=== PATIENT | female | born 1990 | race Caucasian/White ===

== ENCOUNTER 2017-10-07 21:37 | Emergency (ER) | payer BC, OTHER ==
[2017-10-08 00:28] LABS: Appearance,Urine Clear (Clear); Bilirubin,Urine Negative (Negative); Blood,Urine Negative (Negative); Color,Urine Yellow; Glucose,Urine (UA) Negative (Negative); Hyaline Casts,Urine 2 /lpf (0-2); Ketones,Urine Negative (Negative); Leukocyte Esterase,Urine Moderate (Negative); Mucus,Urine Few /hpf; Nitrite,Urine Negative (Negative); Protein,Urine Negative (Negative); RBC,Urine 2 /hpf (0-5); Specific Gravity,Urine 1.013 (1.001-1.035); Squamous Epithelial Cell,Urine 7 /hpf (0-4); Urobilinogen,Urine <2.0 mg/dL (<2.0); WBC,Urine 4 /hpf (0-5)
--- NOTE | 2017-10-08 00:30 | ED ---
Abdominal Pain HPI - General Chief Complaint: Abdominal Pain Stated Complaint: Abd Pain/Brown Urine Time Seen by Provider: 10/08/17 00:05 Source: patient Mode of arrival: ambulatory Limitations: no limitations - History of Present Illness Initial Comments: This patient is a 27-year-old woman who presents to be evaluated for abdominal pains and dark urine. The patient states that she noted that her urine was dark last night, 24 hours ago. She states she is not certain if it is any better today, she did not notice. Tonight she was at work and she was having some abdominal pains that seem to be migrating around her abdomen. She indicates that the pain was at times in the bilateral lower quadrants, at times in the left upper quadrant, and it seemed to be moving around. The patient was concerned that her son may have given her hepatitis A as he had some vomiting and diarrhea last week. Her son has not had a known exposure or a known diagnosis. She had taken him to the clinic and he was given prescription for antiemetic. The patient then had spent the weekend with his father and she did not know how he was doing, but reports that the patient's father did not give him the medication. Patient denies nausea or vomiting, change in bowel movements, or other urinary symptoms, including no frequency, urgency, or dysuria. MD Complaint: abdominal pain -: hour(s) Radiation: none Migration to: other (Diffuse) Severity: moderate Quality: cramping Consistency: colicky Improves With: nothing Worsens With: nothing Associated Symptoms: other (Dark urine) - Related Data Home Medications Medication Instructions Recorded Confirmed Pnv,Calcium 72/Iron/Folic Acid 1 each PO DAILY 10/17/15 02/28/16 [ Plus Tablet] Previous Rx's Medication Instructions Recorded Ibuprofen [Motrin] 600 mg PO Q6HR PRN #30 tab 03/01/16 Allergies Allergy/AdvReac Type Severity Reaction Status Date / Time No Known Allergies Allergy Verified 10/07/17 22:15 Review of Systems ROS Statement: Those systems with pertinent positive or pertinent negative responses have been documented in the HPI. ROS Other: All systems not noted in ROS Statement are negative. Constitutional: Denies: fever, chills Respiratory: Denies: cough, dyspnea Cardiovascular: Denies: chest pain, palpitations Gastrointestinal: Reports: abdominal pain. Denies: nausea, vomiting, diarrhea, constipation, melena, hematochezia Genitourinary: Reports: other (Dark urine). Denies: dysuria, frequency, abnormal menses Musculoskeletal: Denies: back pain Skin: Denies: rash Neurological: Denies: headache Past Medical History Past Medical History: No Reported History Additional Past Medical History / Comment(s): cyst on labia, kidney stones, History of Any Multi-Drug Resistant Organisms: None Reported Past Surgical History: Section Additional Past Surgical History / Comment(s): cyst removal from labia Past Anesthesia/Blood Transfusion Reactions: No Reported Reaction Past Psychological History: No Psychological Hx Reported Smoking Status: Former smoker Past Alcohol Use History: None Reported Past Drug Use History: None Reported - Past Family History Father History Unknown: Yes Family Medical History: Hypertension Additional Family Medical History / Comment(s): paternal grandmother General Exam Limitations: no limitations General appearance: alert, in no apparent distress Head exam: Present: atraumatic, normocephalic Eye exam: Present: normal appearance. Absent: scleral icterus, conjunctival injection ENT exam: Present: normal oropharynx Respiratory exam: Present: normal lung sounds bilaterally. Absent: respiratory distress, wheezes, rales, rhonchi, stridor Cardiovascular Exam: Present: regular rate, normal rhythm, normal heart sounds. Absent: systolic murmur, diastolic murmur, rubs, gallop GI/Abdominal exam: Present: soft, normal bowel sounds. Absent: distended, tenderness, guarding, rebound, rigid, mass, pulsatile mass, hernia Extremities exam: Present: normal inspection, normal capillary refill. Absent: pedal edema, calf tenderness Back exam: Present: normal inspection. Absent: CVA tenderness (R), CVA tenderness (L) Neurological exam: Present: alert Skin exam: Present: warm, dry, intact, normal color. Absent: rash Course Vital Signs 10/07/17 22:11 Temperature 99.1 F Pulse Rate 79 Respiratory 17 Rate Blood Pressure 122/58 O2 Sat by Pulse 98 Oximetry Medical Decision Making - Lab Data Result diagrams: 10/08/17 00:31 10/08/17 00:31 Lab Results 10/08/17 10/08/17 10/08/17 Range/Units 00:00 00:00 00:31 WBC (3.8-10.6) k/uL RBC (3.80-5.40) m/uL Hgb (11.4-16.0) gm/dL Hct (34.0-46.0) % MCV (80.0-100.0) fL MCH (25.0-35.0) pg MCHC (31.0-37.0) g/dL RDW (11.5-15.5) % Plt Count (150-450) k/uL Neutrophils % % Lymphocytes % % Monocytes % % Eosinophils % % Basophils % % Neutrophils # (1.3-7.7) k/uL Lymphocytes # (1.0-4.8) k/uL Monocytes # (0-1.0) k/uL Eosinophils # (0-0.7) k/uL Basophils # (0-0.2) k/uL Sodium 141 (137-145) mmol/L Potassium 4.1 (3.5-5.1) mmol/L Chloride 106 (98-107) mmol/L Carbon Dioxide 23 (22-30) mmol/L Anion Gap 12 mmol/L BUN 11 (7-17) mg/dL Creatinine 0.70 (0.52-1.04) mg/dL Est GFR (MDRD) Af Amer >60 (>60 ml/min/1.73 sqM) Est GFR (MDRD) Non-Af >60 (>60 ml/min/1.73 sqM) Glucose 92 (74-99) mg/dL Calcium 10.1 (8.4-10.2) mg/dL Total Bilirubin 0.4 (0.2-1.3) mg/dL AST 23 (14-36) U/L ALT 34 (9-52) U/L Alkaline Phosphatase 45 (38-126) U/L Total Protein 7.9 (6.3-8.2) g/dL Albumin 5.0 (3.5-5.0) g/dL Amylase 46 (30-110) U/L Lipase 71 (23-300) U/L Urine Color Yellow Urine Appearance Clear (Clear) Urine pH 6.0 (5.0-8.0) Ur Specific [place] 1.013 (1.001-1.035) Urine Protein Negative (Negative) Urine Glucose (UA) Negative (Negative) Urine Ketones Negative (Negative) Urine Blood Negative (Negative) Urine Nitrite Negative (Negative) Urine Bilirubin Negative (Negative) Urine Urobilinogen <2.0 (<2.0) mg/dL Ur Leukocyte Esterase Moderate H (Negative) Urine RBC 2 (0-5) /hpf Urine WBC 4 (0-5) /hpf Ur Squamous Epith Cells 7 H (0-4) /hpf Hyaline Casts 2 (0-2) /lpf Urine Mucus Few H (None) /hpf Urine HCG, Qual Not Detected (Not Detectd) 10/08/17 Range/Units 00:31 WBC 7.8 (3.8-10.6) k/uL RBC 4.48 (3.80-5.40) m/uL Hgb 12.8 (11.4-16.0) gm/dL Hct 39.5 (34.0-46.0) % MCV 88.1 (80.0-100.0) fL MCH 28.5 (25.0-35.0) pg MCHC 32.4 (31.0-37.0) g/dL RDW 13.4 (11.5-15.5) % Plt Count 226 (150-450) k/uL Neutrophils % 51 % Lymphocytes % 39 % Monocytes % 6 % Eosinophils % 1 % Basophils % 1 % Neutrophils # 4.0 (1.3-7.7) k/uL Lymphocytes # 3.0 (1.0-4.8) k/uL Monocytes # 0.5 (0-1.0) k/uL Eosinophils # 0.1 (0-0.7) k/uL Basophils # 0.0 (0-0.2) k/uL Sodium (137-145) mmol/L Potassium (3.5-5.1) mmol/L Chloride (98-107) mmol/L Carbon Dioxide (22-30) mmol/L Anion Gap mmol/L BUN (7-17) mg/dL Creatinine (0.52-1.04) mg/dL Est GFR (MDRD) Af Amer (>60 ml/min/1.73 sqM) Est GFR (MDRD) Non-Af (>60 ml/min/1.73 sqM) Glucose (74-99) mg/dL Calcium (8.4-10.2) mg/dL Total Bilirubin (0.2-1.3) mg/dL AST (14-36) U/L ALT (9-52) U/L Alkaline Phosphatase (38-126) U/L Total Protein (6.3-8.2) g/dL Albumin (3.5-5.0) g/dL Amylase (30-110) U/L Lipase (23-300) U/L Urine Color Urine Appearance (Clear) Urine pH (5.0-8.0) Ur Specific [place] (1.001-1.035) Urine Protein (Negative) Urine Glucose (UA) (Negative) Urine Ketones (Negative) Urine Blood (Negative) Urine Nitrite (Negative) Urine Bilirubin (Negative) Urine Urobilinogen (<2.0) mg/dL Ur Leukocyte Esterase (Negative) Urine RBC (0-5) /hpf Urine WBC (0-5) /hpf Ur Squamous Epith Cells (0-4) /hpf Hyaline Casts (0-2) /lpf Urine Mucus (None) /hpf Urine HCG, Qual (Not Detectd) Disposition Clinical Impression: Abdominal pain Disposition: HOME SELF-CARE Condition: Good Instructions: Abdominal Pain (ED) Referrals: Vickie Rodriguez MD [STAFF PHYSICIAN] - 1-2 days
[2017-10-08 00:47] LABS: Basophils % (A) 1 %; Eosinophils # (A) 0.1 k/uL (0-0.7); Eosinophils % (A) 1 %; HCT 39.5 % (34.0-46.0); HGB 12.8 gm/dL (11.4-16.0); Lymphocytes % (A) 39 %; MCH 28.5 pg (25.0-35.0); MCHC 32.4 g/dL (31.0-37.0); MCV 88.1 fL (80.0-100.0); Monocytes # (A) 0.5 k/uL (0-1.0); Monocytes % (A) 6 %; Neutrophils % (A) 51 %; Platelet Count 226 k/uL (150-450); RBC 4.48 m/uL (3.80-5.40); RDW 13.4 % (11.5-15.5); WBC 7.8 k/uL (3.8-10.6)
[2017-10-08 01:02] LABS: ALT 34 U/L (9-52); AST 23 U/L (14-36); Alkaline Phosphatase 45 U/L (38-126); Amylase 46 U/L (30-110); Anion Gap 12 mmol/L; Blood Urea Nitrogen 11 mg/dL (7-17); Calcium 10.1 mg/dL (8.4-10.2); Carbon Dioxide 23 mmol/L (22-30); Chloride 106 mmol/L (98-107); Glucose 92 mg/dL (74-99); Lipase 71 U/L (23-300); Sodium 141 mmol/L (137-145); Total Bilirubin 0.4 mg/dL (0.2-1.3); Total Protein 7.9 g/dL (6.3-8.2)
[2017-10-08 01:07] LABS: Potassium 4.1 mmol/L (3.5-5.1)
[2017-10-08 02:57] VITALS: BP 115/58; PULSE 67; RESP 18; TEMP 98.7
== END 2017-10-08 03:04 | disposition home or self-care (01) ==
LOC: EC 21:37
DX: R10.9 Unspecified abdominal pain (principal); R82.90 Unspecified abnormal findings in urine; Z87.891 Personal history of nicotine dependence; Z79.899 Other long term (current) drug therapy
CPT/HCPCS: 36415; 80053; 81001; 81025; 82150; 83690; 85025; 99284

== ENCOUNTER 2017-12-24 18:53 | Emergency (ER) | payer BC, OTHER ==
[2017-12-24 18:57] VITALS: TEMP 97.1
[2017-12-24 20:31] LABS: Appearance,Urine Cloudy (Clear); Bacteria,Urine Occasional /hpf; Bilirubin,Urine Negative (Negative); Blood,Urine Negative (Negative); Color,Urine Yellow; Glucose,Urine (UA) Negative (Negative); Ketones,Urine Trace (Negative); Leukocyte Esterase,Urine Large (Negative); Mucus,Urine Many /hpf; Nitrite,Urine Negative (Negative); Protein,Urine 1+ (Negative); RBC,Urine 5 /hpf (0-5); Specific Gravity,Urine 1.028 (1.001-1.035); Squamous Epithelial Cell,Urine 15 /hpf (0-4); WBC,Urine 17 /hpf (0-5)
[2017-12-24] MEDS ORDERED: ONDANSETRON 4 MG/2 ML VIAL IVP STA (20:52)
[2017-12-24] MEDS ORDERED: SODIUM CHLORIDE 0.9% 1,000 ML IV ONE (20:52)
[2017-12-24] MEDS ORDERED: DICYCLOMINE 10 MG/ML 2 ML AMP IM STA (20:52)
--- NOTE | 2017-12-24 20:56 | ED ---
Nausea/Vomiting/Diarrhea HPI - General Chief complaint: Nausea/Vomiting/Diarrhea Stated complaint: nausea Time Seen by Provider: 12/24/17 20:36 Source: patient Mode of arrival: ambulatory Limitations: no limitations - History of Present Illness Initial comments: 27-year-old female patient presented to the emergency department today for evaluation of nausea, vomiting, diarrhea, and abdominal cramping. Patient states that symptoms started last evening with diarrhea. States she his having lower abdominal cramping currently. States that she has vomited twice today. She states that she has felt feverish and chilled. States that she could not make it through her work day today. She denies any hematemesis, hematochezia, or melena. She denies any dysuria, hematuria, urinary urgency, urinary frequency. States that she does get the [place] shot, is not sexually active, and therefore denies any chance of . She denies any abnormal vaginal bleeding or discharge. Patient denies any recent rash, shortness breath, chest pain, back pain, numbness, tingling, dizziness, weakness, headache, visual changes, or any other complaints. - Related Data Home Medications Medication Instructions Recorded Confirmed Pnv,Calcium 72/Iron/Folic Acid 1 tab PO DAILY 10/17/15 12/24/17 [ Plus Tablet] Nyquil Cold And Flu 30 ml PO Q6H PRN 12/24/17 12/24/17 Previous Rx's Medication Instructions Recorded Ondansetron [Zofran ODT] 4 mg PO Q8HR PRN #10 tab 12/24/17 Allergies Allergy/AdvReac Type Severity Reaction Status Date / Time No Known Allergies Allergy Verified 12/24/17 20:30 Review of Systems ROS Statement: Those systems with pertinent positive or pertinent negative responses have been documented in the HPI. ROS Other: All systems not noted in ROS Statement are negative. Past Medical History Past Medical History: No Reported History Additional Past Medical History / Comment(s): cyst on labia, kidney stones, chronic neck pain History of Any Multi-Drug Resistant Organisms: None Reported Past Surgical History: Section Additional Past Surgical History / Comment(s): cyst removal from labia Past Anesthesia/Blood Transfusion Reactions: No Reported Reaction Past Psychological History: No Psychological Hx Reported Smoking Status: Former smoker Past Alcohol Use History: None Reported Past Drug Use History: None Reported - Past Family History Father History Unknown: Yes Family Medical History: Hypertension Additional Family Medical History / Comment(s): paternal grandmother General Exam Limitations: no limitations General appearance: alert, in no apparent distress, other (This is a well- developed, well-nourished, nontoxic-appearing 27-year-old female patient with no acute distress. Vital signs upon presentation are temperature 97.1F, pulse 112, respirations 20, blood pressure 107/65, pulse ox 99% on room air.) Eye exam: Present: normal appearance, PERRL, EOMI. Absent: scleral icterus, conjunctival injection, periorbital swelling ENT exam: Present: normal exam, normal oropharynx, mucous membranes moist Respiratory exam: Present: normal lung sounds bilaterally. Absent: respiratory distress, wheezes, rales, rhonchi, stridor Cardiovascular Exam: Present: regular rate, normal rhythm, normal heart sounds. Absent: systolic murmur, diastolic murmur, rubs, gallop, clicks GI/Abdominal exam: Present: soft, tenderness (Lower abdominal tenderness), normal bowel sounds. Absent: distended, guarding, rebound, rigid Neurological exam: Present: alert, oriented X3, CN II-XII intact Psychiatric exam: Present: normal affect, normal mood Skin exam: Present: warm, dry, intact, normal color. Absent: rash Course Vital Signs 12/24/17 12/24/17 18:55 22:52 Temperature 97.1 F L Pulse Rate 112 H 77 Respiratory 20 16 Rate Blood Pressure 107/65 114/59 O2 Sat by Pulse 99 99 Oximetry Medical Decision Making - Medical Decision Making 27-year-old female patient presented to the emergency department today for evaluation of diarrhea, vomiting, and lower abdominal cramping. Physical examination was unremarkable. Abdomen is soft and nontender. Labs reviewed and were unremarkable. KUB x-ray of the abdomen did show new calcifications over the left kidney. Patient is not complaining of any flank pain or hematuria. I did discuss findings with the patient. She states she is feeling better after receiving medications and IV fluids here in the department. We will discharge her at this time with probable diagnosis of gastroenteritis given her symptoms. Patient is instructed to follow-up with the primary care physician for recheck. She is instructed to return here immediately for any new , worsening, or concerning symptoms. She verbalizes understanding and agrees with this plan. - Lab Data Result diagrams: 12/24/17 21:28 12/24/17 21:28 Lab Results 12/24/17 12/24/17 12/24/17 Range/Units 20:08 20:08 21:28 WBC 9.4 (3.8-10.6) k/uL RBC 4.86 (3.80-5.40) m/uL Hgb 13.8 (11.4-16.0) gm/dL Hct 42.4 (34.0-46.0) % MCV 87.2 (80.0-100.0) fL MCH 28.4 (25.0-35.0) pg MCHC 32.6 (31.0-37.0) g/dL RDW 12.8 (11.5-15.5) % Plt Count 170 (150-450) k/uL Neutrophils % 89 % Lymphocytes % 6 % Monocytes % 4 % Eosinophils % 1 % Basophils % 0 % Neutrophils # 8.4 H (1.3-7.7) k/uL Lymphocytes # 0.5 L (1.0-4.8) k/uL Monocytes # 0.4 (0-1.0) k/uL Eosinophils # 0.1 (0-0.7) k/uL Basophils # 0.0 (0-0.2) k/uL Sodium (137-145) mmol/L Potassium (3.5-5.1) mmol/L Chloride (98-107) mmol/L Carbon Dioxide (22-30) mmol/L Anion Gap mmol/L BUN (7-17) mg/dL Creatinine (0.52-1.04) mg/dL Est GFR (CKD-EPI)AfAm (>60 ml/min/1.73 sqM) Est GFR (CKD-EPI)NonAf (>60 ml/min/1.73 sqM) Glucose (74-99) mg/dL Calcium (8.4-10.2) mg/dL Total Bilirubin (0.2-1.3) mg/dL AST (14-36) U/L ALT (9-52) U/L Alkaline Phosphatase (38-126) U/L Total Protein (6.3-8.2) g/dL Albumin (3.5-5.0) g/dL Lipase (23-300) U/L Urine Color Yellow Urine Appearance Cloudy H (Clear) Urine pH 6.0 (5.0-8.0) Ur Specific [place] 1.028 (1.001-1.035) Urine Protein 1+ H (Negative) Urine Glucose (UA) Negative (Negative) Urine Ketones Trace H (Negative) Urine Blood Negative (Negative) Urine Nitrite Negative (Negative) Urine Bilirubin Negative (Negative) Urine Urobilinogen 2.0 (<2.0) mg/dL Ur Leukocyte Esterase Large H (Negative) Urine RBC 5 (0-5) /hpf Urine WBC 17 H (0-5) /hpf Ur Squamous Epith Cells 15 H (0-4) /hpf Urine Bacteria Occasional H (None) /hpf Urine Mucus Many H (None) /hpf Urine HCG, Qual Not Detected (Not Detectd) 12/24/17 Range/Units 21:28 WBC (3.8-10.6) k/uL RBC (3.80-5.40) m/uL Hgb (11.4-16.0) gm/dL Hct (34.0-46.0) % MCV (80.0-100.0) fL MCH (25.0-35.0) pg MCHC (31.0-37.0) g/dL RDW (11.5-15.5) % Plt Count (150-450) k/uL Neutrophils % % Lymphocytes % % Monocytes % % Eosinophils % % Basophils % % Neutrophils # (1.3-7.7) k/uL Lymphocytes # (1.0-4.8) k/uL Monocytes # (0-1.0) k/uL Eosinophils # (0-0.7) k/uL Basophils # (0-0.2) k/uL Sodium 142 (137-145) mmol/L Potassium 4.1 (3.5-5.1) mmol/L Chloride 104 (98-107) mmol/L Carbon Dioxide 22 (22-30) mmol/L Anion Gap 16 mmol/L BUN 16 (7-17) mg/dL Creatinine 0.62 (0.52-1.04) mg/dL Est GFR (CKD-EPI)AfAm >90 (>60 ml/min/1.73 sqM) Est GFR (CKD-EPI)NonAf >90 (>60 ml/min/1.73 sqM) Glucose 80 (74-99) mg/dL Calcium 9.6 (8.4-10.2) mg/dL Total Bilirubin 0.6 (0.2-1.3) mg/dL AST 22 (14-36) U/L ALT 22 (9-52) U/L Alkaline Phosphatase 49 (38-126) U/L Total Protein 7.2 (6.3-8.2) g/dL Albumin 4.5 (3.5-5.0) g/dL Lipase 59 (23-300) U/L Urine Color Urine Appearance (Clear) Urine pH (5.0-8.0) Ur Specific [place] (1.001-1.035) Urine Protein (Negative) Urine Glucose (UA) (Negative) Urine Ketones (Negative) Urine Blood (Negative) Urine Nitrite (Negative) Urine Bilirubin (Negative) Urine Urobilinogen (<2.0) mg/dL Ur Leukocyte Esterase (Negative) Urine RBC (0-5) /hpf Urine WBC (0-5) /hpf Ur Squamous Epith Cells (0-4) /hpf Urine Bacteria (None) /hpf Urine Mucus (None) /hpf Urine HCG, Qual (Not Detectd) - Radiology Data Radiology results: report reviewed, image reviewed Two-view x-ray of the chest shows no sign of intestinal obstruction or pneumoperitoneum. Fecal pattern is normal. There are small calcifications over the interpolar left kidney. Lung bases are clear. Impression by Dr. Henao shows nonacute abdomen. There are no probable left renal calcifications compared to old exam. Disposition Clinical Impression: Gastroenteritis Disposition: HOME SELF-CARE Condition: Good Instructions: Gastroenteritis (ED) Additional Instructions: Start with a clear liquid diet and advance as tolerated. Follow up with your primary care physician for a recheck in 1-2 days. Return here immediately for any new, worsening, or concerning symptoms. Prescriptions: Ondansetron [Zofran ODT] 4 mg PO Q8HR PRN #10 tab PRN Reason: Nausea Referrals: Faisal Peters MD [Primary Care Provider] - 1-2 days Time of Disposition: 22:49
[2017-12-24 21:42] LABS: Basophils % (A) 0 %; Eosinophils # (A) 0.1 k/uL (0-0.7); Eosinophils % (A) 1 %; HCT 42.4 % (34.0-46.0); HGB 13.8 gm/dL (11.4-16.0); Lymphocytes # (A) 0.5 k/uL (1.0-4.8); Lymphocytes % (A) 6 %; MCH 28.4 pg (25.0-35.0); MCHC 32.6 g/dL (31.0-37.0); MCV 87.2 fL (80.0-100.0); Mean Platelet Volume 7.9; Monocytes # (A) 0.4 k/uL (0-1.0); Monocytes % (A) 4 %; Neutrophils # (A) 8.4 k/uL (1.3-7.7); Neutrophils % (A) 89 %; Platelet Count 170 k/uL (150-450); RBC 4.86 m/uL (3.80-5.40); RDW 12.8 % (11.5-15.5); WBC 9.4 k/uL (3.8-10.6)
[2017-12-24 21:51] LABS: ALT 22 U/L (9-52); AST 22 U/L (14-36); Albumin 4.5 g/dL (3.5-5.0); Alkaline Phosphatase 49 U/L (38-126); Anion Gap 16 mmol/L; Blood Urea Nitrogen 16 mg/dL (7-17); Calcium 9.6 mg/dL (8.4-10.2); Carbon Dioxide 22 mmol/L (22-30); Chloride 104 mmol/L (98-107); Glucose 80 mg/dL (74-99); Lipase 59 U/L (23-300); Potassium 4.1 mmol/L (3.5-5.1); Sodium 142 mmol/L (137-145); Total Bilirubin 0.6 mg/dL (0.2-1.3); Total Protein 7.2 g/dL (6.3-8.2)
--- NOTE | 2017-12-24 22:02 | XR ---
EXAMINATION TYPE: XR KUB DATE OF EXAM: 12/24/2017 COMPARISON: 03/05/2013 HISTORY: Abdominal pain TECHNIQUE: 2 views. Findings There is no sign of intestinal obstruction or pneumoperitoneum. Fecal pattern is normal. There are sm all calcifications over the interpolar left kidney.. Lung bases are clear. : IMPRESSION: Nonacute abdomen. There are new probable left renal calcifications compared to old exam.
[2017-12-24 23:00] VITALS: BP 114/59; PULSE 77; RESP 16
== END 2017-12-24 23:00 | disposition home or self-care (01) ==
LOC: EC 18:53
DX: K52.9 Noninfective gastroenteritis and colitis, unspecified (principal); Z87.891 Personal history of nicotine dependence
CPT/HCPCS: 36415; 80053; 83690; 85025; 81001; 81025; 87086; 74018; 99284; 96374; 96361; 96372; J0500; J2405

== ENCOUNTER → 2018-02-25 | Outpatient (CLI) | payer BC, OTHER | END | disposition home or self-care (01) | LOC: LABWHC1 14:50 | PROVIDERS: ATTEND Obstetrics & Gynecology | DX: N91.2 Amenorrhea, unspecified (principal) | CPT/HCPCS: 36415; 84702 ==

== ENCOUNTER 2019-04-28 06:54 | Emergency (ER) | payer BC, OTHER ==
--- NOTE | 2019-04-28 07:38 | ED ---
Extremity Problem HPI - General Chief complaint: Extremity Problem,Nontraumatic Stated complaint: R Arm Pain Time Seen by Provider: 04/28/19 07:25 Source: patient, RN notes reviewed Mode of arrival: ambulatory Limitations: no limitations - History of Present Illness Initial comments: This a 29-year-old female presents emergency Department chief complaint of right arm and hand pain. Patient states that she had an IV 2 weeks ago states that she has some discomfort at that time and states that pain has not improved. Patient states his area swelling and bruising.. Patient is concerned about this. Patient denies any chest pain or shortness breath no fevers or chills. She states she only has right arm pain. Patient denies any current paresthesias . Patient has not taken anything for the discomfort. - Related Data Home Medications Medication Instructions Recorded Confirmed Ibuprofen [Motrin Ib] 400 mg PO BID PRN 04/28/19 04/28/19 Loratadine [Claritin] 10 mg PO DAILY 04/28/19 04/28/19 Previous Rx's Medication Instructions Recorded Ibuprofen [Motrin] 600 mg PO Q8HR PRN #30 tab 04/28/19 Allergies Allergy/AdvReac Type Severity Reaction Status Date / Time No Known Allergies Allergy Verified 04/28/19 07:57 Review of Systems ROS Statement: Those systems with pertinent positive or pertinent negative responses have been documented in the HPI. ROS Other: All systems not noted in ROS Statement are negative. Past Medical History Past Medical History: No Reported History Additional Past Medical History / Comment(s): cyst on labia, kidney stones, chronic neck pain History of Any Multi-Drug Resistant Organisms: None Reported Past Surgical History: Section Additional Past Surgical History / Comment(s): cyst removal from labia Past Anesthesia/Blood Transfusion Reactions: No Reported Reaction Past Psychological History: No Psychological Hx Reported Smoking Status: Former smoker Past Alcohol Use History: None Reported Past Drug Use History: None Reported - Past Family History Father History Unknown: Yes Family Medical History: Hypertension Additional Family Medical History / Comment(s): paternal grandmother General Exam Limitations: no limitations General appearance: alert, in no apparent distress Head exam: Present: atraumatic, normocephalic, normal inspection Neck exam: Present: normal inspection, full ROM. Absent: tenderness, meningismus, lymphadenopathy Respiratory exam: Present: normal lung sounds bilaterally. Absent: respiratory distress, wheezes, rales, rhonchi, stridor Cardiovascular Exam: Present: regular rate, normal rhythm, normal heart sounds. Absent: systolic murmur, diastolic murmur, rubs, gallop, clicks Extremities exam: Present: other (Right hand there is an area of erythema on the dorsal surface, proximal this is tenderness over the superficial vessel radial pulses equal bilaterally with equal Refill less than 2 seconds of all digits. There is no tenderness proximal to the elbow no discoloration) Skin exam: Present: warm, dry, intact, normal color. Absent: rash Course Vital Signs 04/28/19 07:18 Temperature 98.5 F Pulse Rate 74 Respiratory 18 Rate Blood Pressure 119/79 O2 Sat by Pulse 99 Oximetry Medical Decision Making - Medical Decision Making 29-year-old female presented for right arm pain. Patient has superficial thrombophlebitis from IV start. Patient we placed on ibuprofen warm compresses. There is no evidence DVT. Disposition Clinical Impression: Superficial thrombophlebitis Disposition: HOME SELF-CARE Condition: Stable Instructions (If sedation given, give patient instructions): Superficial Thrombophlebitis (ED) Additional Instructions: Please return to the Emergency Department if symptoms worsen or any other concerns. Prescriptions: Ibuprofen [Motrin] 600 mg PO Q8HR PRN #30 tab PRN Reason: Pain Is patient prescribed a controlled substance at d/c from ED?: No Referrals: Faisal Peters MD [Primary Care Provider] - 1-2 days Time of Disposition: 09:06
--- NOTE | 2019-04-28 08:41 | US ---
EXAMINATION TYPE: US venous doppler duplex UE RT DATE OF EXAM: 04/28/2019 COMPARISON: NONE CLINICAL HISTORY: Pain. Right arm pain SIDE PERFORMED: Right TECHNIQUE/FINDINGS: Grayscale, color doppler, spectral doppler imaging performed of the deep veins of the upper extremities. There is normal flow, compressibility and vascular waveforms of the upper ex tremity other than the cephalic vein. Right Arm: Negative for DVT Cephalic Vein unable to visualize. IMPRESSION: Nonvisualization of the cephalic vein, otherwise no acute deep venous thrombosis within the right upp er extremity.
[2019-04-28 09:17] VITALS: BP 120/82; PULSE 70; RESP 12; TEMP 98
== END 2019-04-28 09:12 | disposition home or self-care (01) ==
LOC: EC 06:54
DX: I80.8 Phlebitis and thrombophlebitis of other sites (principal); Z79.899 Other long term (current) drug therapy; Z87.891 Personal history of nicotine dependence
CPT/HCPCS: 99283

== ENCOUNTER → 2019-05-12 | Outpatient (CLI) | payer BC, OTHER ==
--- NOTE | 2019-05-13 11:40 | ECHOF ---
Referral Reason:R00.2, R06 MEASUREMENTS -------- HEIGHT: 160.0 cm WEIGHT: 63.5 kg BP: RVIDd: 2.6 cm (< 3.3) IVSd: 0.6 cm (0.6 - 1.1) LVIDd: 3.6 cm (3.9 - 5.3) LVPWd: 0.9 cm (0.6 - 1.1) IVSs: 1.2 cm LVIDs: 2.4 cm LVPWs: 1.2 cm LAESV Index (A-L): 13.07 ml/m Ao Diam: 2.5 cm (2.0 - 3.7) AV Cusp: 2.0 cm (1.5 - 2.6) LA Diam: 2.7 cm (2.7 - 3.8) MV EXCURSION: 21.345 mm (> 18.000) MV EF SLOPE: 152 mm/s (70 - 150) EPSS: 0.6 cm MV E Juan: 0.90 m/s MV DecT: 140 ms MV A Juan: 0.65 m/s MV E/A Ratio: 1.38 RAP: 5.00 mmHg RVSP: 27.88 mmHg FINDINGS -------- Sinus rhythm. This was a technically good study. The left ventricular size is normal. Left ventricular wall thickness is normal. Overall left vent ricular systolic function is normal with, an EF between 55 - 60 %. The right ventricle is normal in size. Normal LA size by volume 22+/-6 ml/m2. The right atrial size is normal. The aortic valve is trileaflet and appears structurally normal. There is trace mitral regurgitation. Mild prolapse of the anterior mitral valve leaflet. No regurgitation noted There is no pulmonic regurgitation present. The aortic root size is normal. Normal inferior vena cava with normal inspiratory collapse consistent with estimated right atrial pre ssure of 5 mmHg. There is no pericardial effusion. CONCLUSIONS -------- 1. Sinus rhythm. 2. This was a technically good study. 3. The left ventricular size is normal. 4. Left ventricular wall thickness is normal. 5. Overall left ventricular systolic function is normal with, an EF between 55 - 60 %. 6. The right ventricle is normal in size. 7. Normal LA size by volume 22+/-6 ml/m2. 8. The right atrial size is normal. 9. The aortic valve is trileaflet and appears structurally normal. 10. There is trace mitral regurgitation. 11. Mild prolapse of the anterior mitral valve leaflet. 12. No regurgitation noted 13. There is no pulmonic regurgitation present. 14. The aortic root size is normal. 15. Normal inferior vena cava with normal inspiratory collapse consistent with estimated right atrial pressure of 5 mmHg. 16. There is no pericardial effusion. SEARCH ANALYST: Petrona Silveira RDCS
== END | disposition home or self-care (01) ==
LOC: RADECHMAIN 14:55
PROVIDERS: ATTEND Internal Medicine
DX: R00.2 Palpitations (principal); R06.02 Shortness of breath
CPT/HCPCS: 93306

== ENCOUNTER → 2019-11-10 | Outpatient (CLI) | payer BC, OTHER ==
--- NOTE | 2019-11-10 22:20 | XR ---
EXAMINATION TYPE: XR abdomen 2V DATE OF EXAM: 11/10/2019 COMPARISON: 12/24/2017 HISTORY: Pain TECHNIQUE: One view abdominal series FINDINGS: The osseous structures are intact. The bowel gas pattern is nonspecific. Approximately 2 calcificati ons overlying the lower pole the left kidney measuring 3 mm. Retained fecal debris throughout the col on correlate for constipation. Arthropathy of the hips. IMPRESSION: 1. Nonspecific abdomen. 2. There are 2 approximately 3 mm calcifications overlying the lower pole of the left kidney.
--- NOTE | 2019-11-10 22:29 | XR ---
EXAMINATION TYPE: XR spine complete AP and Lat DATE OF EXAM: 11/10/2019 COMPARISON: 06/07/2016 HISTORY: Pain TECHNIQUE: AP and lateral views of the cervical, thoracic and lumbar spine submitted FINDINGS: Cervical spine: Odontoid intact. There is narrowing of disc space at C3-C4 with anterior hypertrophic spur. No compression deformities. Prevertebral soft tissue structures within normal limits. Thoracic spine: No compression deformities. Alignment is anatomic. Vertebral body height and disc int erspace maintained. Pedicles intact. Subtle curvature of the spine. Lumbar spine: Pedicles intact. Vertebral body height is maintained. Disc interspaces maintained. No c ompression deformities. Could not exclude facet arthropathy L5-S1 with slight anterolisthesis. Approximately 5 calcifications in the left upper quadrant radiating in size from 1 mm to 4 mm. IMPRESSION: 1. Degenerative disc disease and hypertrophic spurring at C3-C4. Consider MRI follow-up. 2. Suggestion of slight anterolisthesis L5 relative to S1 with possible facet arthropathy. Recommend follow-up MRI. 3. Findings suspicious for left renal calculus. Correlate clinically.
== END | disposition home or self-care (01) ==
LOC: RADXRMAIN 16:30
PROVIDERS: ATTEND Pediatrics
DX: N28.89 Other specified disorders of kidney and ureter (principal); M50.31 Other cervical disc degeneration, high cervical region
CPT/HCPCS: 72082; 74019

== ENCOUNTER 2020-03-10 11:40 | Emergency (ER) | payer BC, OTHER ==
--- NOTE | 2020-03-10 12:37 | ED ---
Extremity Problem HPI - General Chief complaint: Extremity Problem,Nontraumatic Stated complaint: rt arm numbness Time Seen by Provider: 03/10/20 12:10 Source: patient Mode of arrival: ambulatory Limitations: no limitations - History of Present Illness Initial comments: Patient is 29-year-old female presenting to the emergency department the chief complaint of right arm numbness and tingling. Patient states symptoms of an ongoing intermittently for about 2 months. States she works for [employer] and has been working increasingly over the same period. Patient states she feels tenderness along the anteromedial aspect of the right forearm starting at the elbow. States she is also noticed some numbness and tingling in her fingers as well. Denies any hand swelling originated in the fingers. Patient denies any erythema or ecchymosis. Patient denies taking medication to alleviate the symptoms. Patient states that she suspecting tunnel syndrome. States she had similar symptoms in the left upper extremity which have since resolved. Denies any neck pain or radiation of the pain distally to any of the extremities. Denies any nuchal rigidity or limited range of motion of the neck. Denies any trauma, fevers or chills. - Related Data Home Medications Medication Instructions Recorded Confirmed Ibuprofen [Motrin Ib] 400 mg PO BID PRN 04/28/19 04/28/19 Loratadine [Claritin] 10 mg PO DAILY 04/28/19 04/28/19 Previous Rx's Medication Instructions Recorded Ibuprofen [Motrin] 600 mg PO Q8HR PRN #30 tab 04/28/19 Allergies Allergy/AdvReac Type Severity Reaction Status Date / Time No Known Allergies Allergy Verified 03/10/20 12:06 Review of Systems ROS Statement: Those systems with pertinent positive or pertinent negative responses have been documented in the HPI. ROS Other: All systems not noted in ROS Statement are negative. Past Medical History Past Medical History: No Reported History Additional Past Medical History / Comment(s): cyst on labia, kidney stones, chronic neck pain History of Any Multi-Drug Resistant Organisms: None Reported Past Surgical History: Section Additional Past Surgical History / Comment(s): cyst removal from labia Past Anesthesia/Blood Transfusion Reactions: No Reported Reaction Past Psychological History: No Psychological Hx Reported Smoking Status: Former smoker Past Alcohol Use History: None Reported Past Drug Use History: None Reported - Past Family History Father History Unknown: Yes Family Medical History: Hypertension Additional Family Medical History / Comment(s): paternal grandmother General Exam Limitations: no limitations General appearance: alert, in no apparent distress Head exam: Present: atraumatic, normocephalic, normal inspection Eye exam: Present: normal appearance, PERRL, EOMI Pupils: Present: normal accommodation ENT exam: Present: normal exam, normal oropharynx, mucous membranes moist Neck exam: Present: normal inspection, full ROM. Absent: tenderness, meningismus, other (No nuchal rigidity) Respiratory exam: Present: normal lung sounds bilaterally. Absent: respiratory distress, wheezes Cardiovascular Exam: Present: regular rate, normal rhythm, normal heart sounds Extremities exam: Present: normal inspection, full ROM, tenderness (Tenderness along the medial epicondyle. Positive Phalen and tinel test.), normal capillary refill, calf tenderness, other (Negative Knievel sign. Negative Edilia. Strength 5/5 in the right upper extremity. No loss of sensation. +2 ulnar and radial pulses bilaterally.). Absent: joint swelling Back exam: Present: normal inspection, full ROM. Absent: CVA tenderness (R), CVA tenderness (L) Neurological exam: Present: alert, oriented X3 Psychiatric exam: Present: normal affect, normal mood Skin exam: Present: warm, dry, intact, normal color Course Vital Signs 03/10/20 03/10/20 12:01 13:00 Temperature 98 F 98.0 F Pulse Rate 79 82 Respiratory 18 16 Rate Blood Pressure 97/62 100/66 O2 Sat by Pulse 100 98 Oximetry Medical Decision Making - Medical Decision Making Patient is a 29-year-old female presenting to the emergency department with a chief complaint of right arm numbness. Physical examination reveals tenderness along the medial epicondyle and along the flexor tendons. Negative Knievel sign. No signs of flexor tenosynovitis at this time. I suspect golfers elbow. Patient also appears to have a positive tinel and phalen sign. I'm suspecting carpal tunnel like syndrome. Patient advised to apply a wrist brace to help with pain. Advised to alternate between Tylenol Motrin for pain control. Advised to apply ice compress. Return parameters were thoroughly discussed the patient was understanding and agreeable. Case discussed with physician. Disposition Clinical Impression: Carpal tunnel syndrome of right wrist Disposition: HOME SELF-CARE Condition: Stable Instructions (If sedation given, give patient instructions): Paresthesia (ED), Carpal Tunnel Surgery (DC) Additional Instructions: Follow-up with your primary care. Return to emergency department if symptoms worsen. Apply ice compresses and alternate between Tylenol and Motrin for pain control. Is patient prescribed a controlled substance at d/c from ED?: No Referrals: Faisal Peters MD [Primary Care Provider] - 1-2 days Time of Disposition: 12:37
[2020-03-10 13:01] VITALS: BP 100/66; PULSE 82; RESP 16; TEMP 98
== END 2020-03-10 13:00 | disposition home or self-care (01) ==
LOC: EC 11:40
DX: G56.01 Carpal tunnel syndrome, right upper limb (principal); Z87.891 Personal history of nicotine dependence
CPT/HCPCS: 99283

== ENCOUNTER 2020-05-09 17:38 | Emergency (ER) | payer BC, OTHER ==
[2020-05-09 17:47] VITALS: BP 116/66; PULSE 99; RESP 20; TEMP 98.7
[2020-05-09] MEDS ORDERED: CEPHALEXIN 500MG STARTER PACK 4 CAP BTL PO STA (18:09)
--- NOTE | 2020-05-09 18:29 | ED ---
General Adult HPI - General Chief complaint: Skin/Abscess/Foreign Body Stated complaint: foot infection Time Seen by Provider: 05/09/20 17:58 Source: patient, RN notes reviewed Mode of arrival: ambulatory Limitations: no limitations - History of Present Illness Initial comments: 30-year-old female presents to the emergency department for a chief complaint of left foot and ankle irritation. patient reports that she was stung by a bee in the left ankle 4 days ago. States that since that time it has become increasingly red and swollen. Patient states it is now becoming painful. She denies fevers or chills.Patient has no other complaints at this time including shortness of breath, chest pain, abdominal pain, nausea or vomiting, headache, or visual changes. - Related Data Home Medications Medication Instructions Recorded Confirmed Ibuprofen [Motrin Ib] 400 mg PO BID PRN 04/28/19 04/28/19 Loratadine [Claritin] 10 mg PO DAILY 04/28/19 04/28/19 Previous Rx's Medication Instructions Recorded Ibuprofen [Motrin] 600 mg PO Q8HR PRN #30 tab 04/28/19 Cephalexin [Keflex] 500 mg PO Q6HR 10 Days #40 cap 05/09/20 Allergies Allergy/AdvReac Type Severity Reaction Status Date / Time No Known Allergies Allergy Verified 05/09/20 17:47 Review of Systems ROS Statement: Those systems with pertinent positive or pertinent negative responses have been documented in the HPI. ROS Other: All systems not noted in ROS Statement are negative. Past Medical History Past Medical History: No Reported History Additional Past Medical History / Comment(s): cyst on labia, kidney stones, chronic neck pain History of Any Multi-Drug Resistant Organisms: None Reported Past Surgical History: Section Additional Past Surgical History / Comment(s): cyst removal from labia Past Anesthesia/Blood Transfusion Reactions: No Reported Reaction Past Psychological History: No Psychological Hx Reported Smoking Status: Current every day smoker Past Alcohol Use History: None Reported Past Drug Use History: None Reported - Past Family History Father History Unknown: Yes Family Medical History: Hypertension Additional Family Medical History / Comment(s): paternal grandmother General Exam Limitations: no limitations General appearance: alert, in no apparent distress Head exam: Present: atraumatic, normocephalic, normal inspection Eye exam: Present: normal appearance, PERRL, EOMI. Absent: scleral icterus, conjunctival injection, periorbital swelling ENT exam: Present: normal exam, mucous membranes moist Neck exam: Present: normal inspection, full ROM. Absent: tenderness, meningismus, lymphadenopathy Respiratory exam: Present: normal lung sounds bilaterally. Absent: respiratory distress, wheezes, rales, rhonchi, stridor Cardiovascular Exam: Present: regular rate, normal rhythm, normal heart sounds. Absent: systolic murmur, diastolic murmur, rubs, gallop, clicks GI/Abdominal exam: Present: soft, normal bowel sounds. Absent: distended, tenderness, guarding, rebound, rigid Extremities exam: Present: full ROM (full range of motion of the left ankle.), normal capillary refill (capillary refill less than 2 seconds, DP pulse 2+ in the left lower extremities), other (patient has a 10 cm x 10 cm area of erythema noted to the left lateral ankle consistent with cellulitis. It is warm to touch with discrete borders.) Course Vital Signs 05/09/20 17:44 Temperature 98.7 F Pulse Rate 99 Respiratory 20 Rate Blood Pressure 116/66 O2 Sat by Pulse 99 Oximetry Medical Decision Making - Medical Decision Making patient was treated for a cellulitis of the left ankle given the erythema and increased warmth. Neurovascular status intact. I did discuss following up with her doctor in one to 2 days and returning here if she has any worsening symptoms.discussed monitoring for spreading redness or streaking redness. Disposition Clinical Impression: Cellulitis Disposition: HOME SELF-CARE Condition: Good Instructions (If sedation given, give patient instructions): Cellulitis (ED) Additional Instructions: please take antibiotic as directed. if redness is spreading significantly or is not starting to improve after 24-48 hours return to the emergency room. Follow- up with primary care in 1-2 days. Return to the emergency room for any worsening symptoms. Prescriptions: Cephalexin [Keflex] 500 mg PO Q6HR 10 Days #40 cap Is patient prescribed a controlled substance at d/c from ED?: No Referrals: Faisal Peters MD [Primary Care Provider] - 1-2 days Time of Disposition: 18:28
== END 2020-05-09 18:45 | disposition home or self-care (01) ==
LOC: EC 17:38
DX: L03.116 Cellulitis of left lower limb (principal); F17.200 Nicotine dependence, unspecified, uncomplicated; Z79.899 Other long term (current) drug therapy
CPT/HCPCS: 99282

== ENCOUNTER 2020-05-18 19:59 | Inpatient (IN) | payer BC, MEDICAID ==
--- NOTE | 2020-05-18 20:07 | ED ---
Psych HPI - General Source: patient Mode of arrival: ambulatory <Giorgi Bella - Last Filed: 05/18/20 22:10> <George Wynn - Last Filed: 05/18/20 22:32> - General Chief Complaint: Psychiatric Symptoms Stated Complaint: Mental Health Time Seen by Provider: 05/18/20 20:06 - History of Present Illness Initial Comments: Patient is 30-year-old female with history of schizophrenia presents emergency Department with a pickup order. Patient states she was outside playing with her son but whenever she goes inside the house, she wants her side inside with her. Patient states the neighbor called CPS and now there is a court order for her to be evaluated. Patient states she has not been taking her Geodon for approximately one week. States she did take it today. Denies any homicidal, suicidal thoughts or ideations. She has no other complaints. (Giorgi Bella) - Related Data Home Medications Medication Instructions Recorded Confirmed Ibuprofen [Motrin Ib] 400 mg PO BID PRN 04/28/19 04/28/19 Loratadine [Claritin] 10 mg PO DAILY 04/28/19 04/28/19 Previous Rx's Medication Instructions Recorded Ibuprofen [Motrin] 600 mg PO Q8HR PRN #30 tab 04/28/19 Cephalexin [Keflex] 500 mg PO Q6HR 10 Days #40 cap 05/09/20 Allergies Allergy/AdvReac Type Severity Reaction Status Date / Time No Known Allergies Allergy Verified 05/18/20 20:06 Review of Systems ROS Other: All systems not noted in ROS Statement are negative. <Giorgi Bella - Last Filed: 05/18/20 22:10> ROS Other: All systems not noted in ROS Statement are negative. <George Wynn - Last Filed: 05/18/20 22:32> ROS Statement: Those systems with pertinent positive or pertinent negative responses have been documented in the HPI. Past Medical History Past Medical History: No Reported History Additional Past Medical History / Comment(s): cyst on labia, kidney stones, chronic neck pain History of Any Multi-Drug Resistant Organisms: None Reported Past Surgical History: Section Additional Past Surgical History / Comment(s): cyst removal from labia Past Anesthesia/Blood Transfusion Reactions: No Reported Reaction Past Psychological History: Anxiety, Bipolar, Depression Smoking Status: Current every day smoker Past Alcohol Use History: None Reported Past Drug Use History: Marijuana - Past Family History Father History Unknown: Yes Family Medical History: Hypertension Additional Family Medical History / Comment(s): paternal grandmother <Giorgi Bella - Last Filed: 05/18/20 22:10> General Exam Limitations: no limitations General appearance: alert, in no apparent distress Head exam: Present: atraumatic, normocephalic, normal inspection Eye exam: Present: normal appearance, PERRL, EOMI Pupils: Present: normal accommodation ENT exam: Present: normal exam, normal oropharynx, mucous membranes moist Neck exam: Present: normal inspection, full ROM. Absent: tenderness Respiratory exam: Present: normal lung sounds bilaterally. Absent: respiratory distress, wheezes Cardiovascular Exam: Present: regular rate, normal rhythm, normal heart sounds Extremities exam: Present: normal inspection, full ROM. Absent: tenderness Back exam: Present: normal inspection, full ROM. Absent: tenderness Neurological exam: Present: alert, oriented X3 Psychiatric exam: Present: normal affect, normal mood Skin exam: Present: warm, dry, intact, normal color <Giorgi Bella - Last Filed: 05/18/20 22:10> Course <George Wynn - Last Filed: 05/18/20 22:32> Vital Signs 05/18/20 20:02 Temperature 97.9 F Pulse Rate 104 H Respiratory 20 Rate Blood Pressure 122/80 O2 Sat by Pulse 100 Oximetry - Reevaluation(s) Reevaluation #1: 05/18/20 22:31 PA supervision: I did personally evaluate this case patient is schizophrenic and noncompliant. I did review the petition and did fall a clinical certain. Patient be admitted for inpatient treatment (George Wynn) Medical Decision Making <Giorgi Bella - Last Filed: 05/18/20 22:10> - Medical Decision Making Patient is 30-year-old female with history of schizophrenia presenting to the emergency department for psychiatric evaluation. Patient has not been taking her Geodon for approximately one week. EPS evaluated patient and they will admit for further psychiatric management. Case discussed physician. (Giorgi Bella) - Lab Data Lab Results 05/18/20 Range/Units 20:24 Urine Opiates Screen Not Detected (NotDetected) Ur Oxycodone Screen Not Detected (NotDetected) Urine Methadone Screen Not Detected (NotDetected) Ur Propoxyphene Screen Not Detected (NotDetected) Ur Barbiturates Screen Not Detected (NotDetected) U Tricyclic Antidepress Not Detected (NotDetected) Ur Phencyclidine Scrn Not Detected (NotDetected) Ur Amphetamines Screen Detected H (NotDetected) U Methamphetamines Scrn Not Detected (NotDetected) U Benzodiazepines Scrn Not Detected (NotDetected) Urine Cocaine Screen Not Detected (NotDetected) U Marijuana (THC) Screen Detected H (NotDetected) Disposition Is patient prescribed a controlled substance at d/c from ED?: No Time of Disposition: 21:58 <Giorgi Bella - Last Filed: 05/18/20 22:10> <George Wynn - Last Filed: 05/18/20 22:32> Clinical Impression: Not taking medication as directed, Schizophrenia Disposition: ADMITTED IP TO THIS HOSP Condition: Good
[2020-05-18 20:56] LABS: Amphetamine Screen,Urine Detected (NotDetected); Barbiturate Screen,Urine Not Detected (NotDetected); Benzodiazepines Screen,Urine Not Detected (NotDetected); Cocaine Screen,Urine Not Detected (NotDetected); Methadone Screen, Urine Not Detected (NotDetected); Opiate Screen,Urine Not Detected (NotDetected); Oxycodone Screen, Urine Not Detected (NotDetected); Phencyclidine Screen,Urine Not Detected (NotDetected); Tricyclic Antidepressant,Urine Not Detected (NotDetected); Urn Cannabinoid Scrn Detected (NotDetected)
[2020-05-18] MEDS ORDERED: MAG HYDROX/AL HYDROX/SIMETH 30 ML CUP PO PRN (22:34)
[2020-05-18] MEDS ORDERED: LORazepam 2 MG/ML INJ IM PRN (22:37)
[2020-05-18] MEDS ORDERED: ZIPRASIDONE 20 MG VIAL IM PRN (23:00)
[2020-05-19 03:19] LABS: Appearance,Urine Cloudy (Clear); Bacteria,Urine Rare /hpf; Bilirubin,Urine Negative (Negative); Blood,Urine Negative (Negative); Color,Urine Yellow; Glucose,Urine (UA) Negative (Negative); Ketones,Urine Negative (Negative); Leukocyte Esterase,Urine Negative (Negative); Mucus,Urine Many /hpf; Nitrite,Urine Negative (Negative); PH, Urine 6.5 (5.0-8.0); Protein,Urine Negative (Negative); RBC,Urine 3 /hpf (0-5); Specific Gravity,Urine 1.021 (1.001-1.035); Squamous Epithelial Cell,Urine 4 /hpf (0-4); Urobilinogen,Urine <2.0 mg/dL (<2.0); WBC,Urine 2 /hpf (0-5)
[2020-05-19] MEDS: ACETAMINOPHEN TAB 325 MG TAB PO PRN ×3 (04:40→20:48)
[2020-05-19 08:07] LABS: Basophils # (A) 0.1 k/uL (0-0.2); Basophils % (A) 1 %; Eosinophils # (A) 0.1 k/uL (0-0.7); Eosinophils % (A) 1 %; HCT 44.4 % (34.0-46.0); HGB 13.9 gm/dL (11.4-16.0); Lymphocytes # (A) 2.4 k/uL (1.0-4.8); Lymphocytes % (A) 29 %; MCH 28.8 pg (25.0-35.0); MCHC 31.3 g/dL (31.0-37.0); MCV 92.2 fL (80.0-100.0); Mean Platelet Volume 7.4; Monocytes # (A) 0.6 k/uL (0-1.0); Monocytes % (A) 7 %; Neutrophils # (A) 4.8 k/uL (1.3-7.7); Neutrophils % (A) 59 %; Platelet Count 271 k/uL (150-450); RBC 4.81 m/uL (3.80-5.40); RDW 13.1 % (11.5-15.5); WBC 8.3 k/uL (3.8-10.6)
[2020-05-19 08:31] LABS: ALT 34 U/L (4-34); AST 33 U/L (14-36); African American GFR (CKD) >90 (>60 ml/min/1.73 sqM); Albumin 4.5 g/dL (3.5-5.0); Alkaline Phosphatase 54 U/L (38-126); Anion Gap 8 mmol/L; Blood Urea Nitrogen 15 mg/dL (7-17); Calcium 9.3 mg/dL (8.4-10.2); Carbon Dioxide 23 mmol/L (22-30); Chloride 106 mmol/L (98-107); Cholesterol 160 mg/dL (<200); Glucose 96 mg/dL (74-99); HDL Cholesterol 55 mg/dL (40-60); LDL Cholesterol,Calculated 85 mg/dL (0-99); Non-African American GFR(CKD) >90 (>60 ml/min/1.73 sqM); Potassium 4.2 mmol/L (3.5-5.1); Sodium 137 mmol/L (137-145); Total Bilirubin 0.6 mg/dL (0.2-1.3); Total Protein 7.2 g/dL (6.3-8.2); Triglycerides 98 mg/dL (<150)
--- NOTE | 2020-05-19 11:23 | HP ---
HISTORY AND PHYSICAL DATE OF ADMISSION: 05/18/2020 DATE OF EVALUATION: 05/19/2020 IDENTIFYING DATA: The patient is 30, single female, who is working full-time at [employer]. The patient is a mother of a 4-year-old son. She is her own guardian. HISTORY OF PRESENT ILLNESS: The patient presented to the emergency department with a forklift picker order, as her mother did fill petition in the court as patient was psychotic.. Initially the patient denied all the allegations on the petition and then she changed her mind and she stated that she is always paranoid and she is thinking that there is camera in the wall across the street, even for the last couple of nights she called the supervisor electronics processing's department twice as she thought that someone was breaking in her apartment. The patient stated that she has been having issue trusting people to the point that she decided to move from her own place on April 30 to a new apartment. The patient kept saying "I am not crazy and I need to be discharged, so I will not lose my job." Then she starting talking about someone in the neighborhood that was trying to get into her place and nobody believed her, even the supervisor electronics processing who came to her place twice. In addition, she thought that someone did make a hole in her son's mattress. According to the petition filed by her mother, the patient was accusing people moving stuff in her apartment and she is the one who has been moving it and she is blaming that people are following her. When I did ask the patient about this, she said "yeah, I found a lot of stuff in my apartment like I found a very black wooded spoon and pocket knife on the kitchen counter and I did not place them ,I am positive that someone was in my new place" When I asked her about any auditory hallucination ,she replied "Yes I did couple of days ago but not now" . The patient stated that she was recently, on May 01, at [facility] for a couple of days and she was discharge on Geodon 20 mg twice a day, but she decided to stop it because "it does make me very tired and I could not go to work." She denied being suicidal or homicidal, but she stated that she is very upset as she found out that one of the new neighbors called CPS on her. She said "I never abuse my son. I am just very careful that someone will hurt him." PAST PSYCHIATRIC HISTORY: As I mentioned before, the patient was admitted 1 time the April just for [address] [facility] and discharged on Geodon 20 mg twice a day. She stated she was admitted for hallucinations. The patient was referred to [facility] at [place]. The patient stated that she has a history of attention deficit or ADD when she was 12 years of age and she was on Adderall for 1 year. She stated that Dr. Shah also has been prescribing Adderall for her since October of 2018 because "I cannot focus and I have attention deficit." ALLERGIES: There is no drug allergy. HOME MEDICATION: Ibuprofen 400 mg twice a day as needed for her chronic neck pain, Claritin 10 mg daily and she is supposed to be on Geodon 20 mg twice a day. PAST MEDICAL HISTORY: History of section 4 years ago. There is history of chronic neck pain and history of kidney stone. SUBSTANCE ABUSE HISTORY: Her urine drug screen was positive for marijuana and amphetamine. 1. Cannabis. She stated that she has medical marijuana card for at least 1 year for her chronic pain. 2. Amphetamine. According to the patient, she has been prescribed by Dr. Pablo Irby since October of 2018 and the last time she saw him it was December of 2019 but she stated that he did leave a prescription for her on April 25. According to her, she has been not misusing this and she is taking at least once or twice a day, "just to be able to work and focus." She denied any other illicit drug abuse. FAMILY HISTORY OF PSYCHIATRIC ILLNESS.: Her brother has depression. SOCIAL HISTORY: The patient is the youngest of 3. She has 2 brother. She never has been . Currently she is not in a relationship. She has a 4-year-old son and she is living on her own with her son. She has been working at [employer] for the last 6 years. Currently she moved to this new apartment the April due to her paranoia. She dropped out school at tenth grade and later she got her GED MENTAL STATUS EXAMINATION: The patient presented as a young female who was wearing a hospital gown. She was trying to be cooperative ,initially she denied having any paranoia or auditory hallucinations. However, when I read to her the petition filed by her mother, she stated that she has been paranoid and suspicious and even she called the [employer]'s Department a couple of nights in a row believing that someone is trying to break in her apartment. Her speech is spontaneous, normal in rate and volume. She stated mood "I am very anxious and I need to see my son." Affect is constricted and inappropriate to thought content. She denied feeling suicidal. She denied having any homicidal ideation. She denied having any hallucinations, but definitely she is paranoia and suspicious, endorses persecutory delusion. She is alert, oriented x3. Her memory is grossly intact. Her insight and judgment are impaired. DIAGNOSIS: 1. 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 4. Cannabis use disorder. STRENGTHS: The patient has a stable job and good support system. WEAKNESSES: Poor compliance with psychotropic medication and no insight to the need to be on medication PLAN: The patient will be admitted under involuntary basis. I will fill physician certificate. Will consult medical doctor for H&P. Will continue Ativan and Geodon p.r.n. for anxiety and agitation. If the patient will agree to start medication, I will start her on Abilify so we can switch her to long-acting injection to assure her compliance with psychotropic medication. The patient will participate in group therapy. egg worker onboard for collateral information and also for post discharge planning. JESSIE / STEFAN: [id number] / [id number]
--- NOTE | 2020-05-19 13:36 | P.CONS ---
History of Present Illness - Reason for Consult Consult date: 05/19/20 - History of Present Illness The patient is a 30-year-old female with a PMH of schizophrenia, mild intermittent asthma, and tobacco abuse who presented to the ED under police custody after pickup order. The patient had reportedly not been taking her Geodon and had been acting strangely. The neighbor had thereby called child protective services. The patient reports chronic neck and middle back pain though denied any additional complaints. She denied chest pain, shortness of pathology report chills, nausea, vomiting or abdominal pain. Past Medical History Past Medical History: No Reported History Additional Past Medical History / Comment(s): cyst on labia, kidney stones, chronic neck pain History of Any Multi-Drug Resistant Organisms: None Reported Past Surgical History: Section Additional Past Surgical History / Comment(s): cyst removal from labia Past Anesthesia/Blood Transfusion Reactions: No Reported Reaction Past Psychological History: Anxiety, Bipolar, Depression Smoking Status: Current every day smoker Past Alcohol Use History: None Reported Past Drug Use History: Marijuana - Past Family History Father History Unknown: Yes Family Medical History: Hypertension Additional Family Medical History / Comment(s): paternal grandmother Medications and Allergies Home Medications Medication Instructions Recorded Confirmed Type Loratadine [Claritin] 10 mg PO DAILY 04/28/19 05/19/20 History Albuterol Inhaler [Ventolin Hfa 2 puff INHALATION RT-Q6H PRN 05/18/20 05/19/20 H istory Inhaler] Cyclobenzaprine [Flexeril] 5 - 10 mg PO BID 05/18/20 05/19/20 History Fluticasone Nasal [place] [Flonase 1 spr EA NOSTRIL BID 05/18/20 05/19/20 History Nasal [place]] Medroxyprogesterone Acetate 150 mg IM Q84D 05/18/20 05/19/20 History [Depo-Provera] Ziprasidone [Geodon] 40 mg PO BID 05/18/20 05/19/20 History Allergies Allergy/AdvReac Type Severity Reaction Status Date / Time No Known Allergies Allergy Verified 05/19/20 01:20 Physical Exam Vitals: Vital Signs Temp Pulse Pulse Resp BP BP Pulse Ox 05/19/20 06:24 98.9 F 67 16 107/55 05/18/20 23:30 97.8 F 80 16 118/70 97 05/18/20 20:02 97.9 F 104 H 20 122/80 100 Intake and Output 05/18/20 05/19/20 05/19/20 22:59 06:59 14:59 Other: Weight 63.503 kg 55.338 kg General: non toxic, no distress, appears at stated age, normal weight Derm: no unusual rashes/lesions no unusual ecchymoses, warm, dry Head: atraumatic, normocephalic, symmetric Eyes: EOMI, no lid lag, anicteric sclera, pupils equal round reactive to light ENT: Nose and ears atraumatic, no thrush, no pharyngeal erythema Neck: No thyromegaly, no cervical lymphadenopathy, trachea midline, supple Mouth: no lip lesion, mucus membranes moist Cardiovascular: S1S2 reg, no murmur, positive posterior tibial pulse bilateral, no edema, capillary refill less than 2 seconds Lungs: CTA bilateral, no rhonchi, no rales , no accessory muscle use Abdominal: soft, nontender to palpation, no guarding, no appreciable organomegaly, normal bowel sounds Ext: no gross muscle atrophy, muscle strength 5 out of 5 in all 4 extremities grossly, no contractures, Neuro: CN II-XI grossly intact, light touch intact all 4 extremities, finger to nose within normal limits, Psych: Alert, oriented, guarded affect Results CBC & Chem 7: 05/19/20 07:32 05/19/20 07:32 Labs: Abnormal Lab Results - Last 24 Hours (Table) 05/18/20 05/18/20 Range/Units 20:24 20:24 Urine Appearance Cloudy H (Clear) Urine Bacteria Rare H (None) /hpf Urine Mucus Many H (None) /hpf Ur Amphetamines Screen Detected H (NotDetected) U Marijuana (THC) Screen Detected H (NotDetected) Assessment and Plan Plan: Psychosis -As per psychiatry Tobacco abuse -Advised on importance of cessation Mild intermittent asthma -Albuterol inhaler when necessary Thank you for allowing us to participate in the care of this patient. We will follow peripherally. Do not hesitate to contact us with questions. Someone can be reached from the [facility] hospitalist group at all hours of the day at [phone].
[2020-05-19] MEDS: MAGNESIUM HYDROXIDE 2,400 MG/10 ML CUP PO PRN (15:02)
[2020-05-19 17:22] LABS: Hemoglobin A1C 6.1 % (4.0-6.0)
[2020-05-19] MEDS ORDERED: ARIPiprazole 15 MG TAB PO SCH (21:00)
--- NOTE | 2020-05-20 09:02 | P.PN ---
Progress Note - Text Progress Note Date: 05/20/20 I did review medical records ,I discussed case in team meeting ,I did interview patient who came to office just for five minutes then she left saying "I just want to lay down" Slept 6 hours Minimal participation in milieu Interim history: Patient stated "I do not feel good ,I have hot and cold sweat, I am dizzy and I can not go to groups", patient was vague,guarded ,evasive ,looking around office ,seems paranoia ,disorganized ,increase reaction time ,fragmented ,at times loosing train of thought,stated that she does not want Abilify as "I am sick from this med" Mental status exam: She presented as young female in hospital [facility] , trying to be cooperative but left office abruptly ,no agitation ,able to sit through interview,speech is non spontaneous ,affect is constricted,,denies any hallucination or delusional thinking but seems responding to internal stimuli ,,evasive and guarded,denies any suicidal or homicidal ,her insight to her mental illness is poor Clinical Problems: Psychosis NOS,rule out substance induced psychosis ,Methamphetamine use disorder Plan: Continue inpatient. Waiting for probate court ,discussed with her need for medication and compliance ,patient seems preoccupied,with no insight,d/c Abilify,start Zyprexa ,encourage participation in groups,monitor symptoms on daily basis
[2020-05-20] MEDS: ACETAMINOPHEN TAB 325 MG TAB PO PRN (17:54)
[2020-05-20] MEDS: MAGNESIUM HYDROXIDE 2,400 MG/10 ML CUP PO PRN (17:54)
[2020-05-20] MEDS: NICOTINE 7MG/24HR PATCH TRANSDERM SCH (18:02)
[2020-05-20] MEDS ORDERED: OLANZapine 5 MG TAB PO SCH (21:00)
[2020-05-21] MEDS: NICOTINE 7MG/24HR PATCH TRANSDERM SCH ×2 (11:52→13:00)
[2020-05-21] MEDS: MAGNESIUM HYDROXIDE 2,400 MG/10 ML CUP PO PRN (13:01)
[2020-05-21] MEDS: ACETAMINOPHEN TAB 325 MG TAB PO PRN ×2 (13:16→21:34)
--- NOTE | 2020-05-21 13:47 | P.PN ---
Subjective Progress Note Date: 05/21/20 Principal diagnosis: Psychosis NOS Subjective the patient says that she was prescribed Adderall and took it a couple days at half the dose and didn't like it she has never used me thamphetamines and her drug screen when she came in did not have any methamphetamines it did have Adderall. And marijuana which probably added to her paranoid she says that [place] heard other people talking and they would say words like "she "and that she began to believe what these other people were saying and that agitated her and that's why she is here. She also came to believe that someone was breaking into her apartment and she would see little things like the door open more easily than he used to and a bag been dumped out that she didn't remember dumping. She denies any paranoid transfer to the hospital staff no hearing voices in here. Objective the patient is very vague has trouble understanding when she has not used enough words to communicate. Eye contact is somewhat decreased psychomotor activity is decreased she is not tearful or aggressive no signs of responding to voices Vital signs: Heart rate 52 respiration 18 blood pressure 112/58 Labs: None in the last 2 days Groups: The patient has not been attending because she feels anxious I strongly urged her to attend and to participate the best she can that it would help her f ight back against her illness and help us assess her better Staff assessment patient is guarded withdrawn reasonable hygiene circumstantial thought processes complaining of tiredness which is pried accurate from the medication she denies any. She had been hospitalized recently went out for short period time came back so she says she is willing to take the medicine at this point. But would like so mething that doesn't sedate her so badly. Assessment patient has a psychotic illness probably schizophrenia she needs antipsychotic that she is willing to take I think she should just adequate that Abilify longer and give it a chance for her body to adjust to not make her so sleepy Zyprexa is going to make her gain weight and guaranteed to make her more sleepy than the Abilify. Objective - Vital Signs Vital signs: Vital Signs Temp 98.9 F 05/19/20 06:24 Pulse 52 L 05/21/20 06:36 Resp 18 05/21/20 06:36 BP 112/58 05/21/20 06:36 Pulse Ox 98 05/20/20 07:01 - Labs CBC & Chem 7: 05/19/20 07:32 05/19/20 07:32
[2020-05-21] MEDS: LORATADINE 10 MG TAB PO SCH (21:34)
[2020-05-21] MEDS: ARIPiprazole 5 MG TAB PO SCH (21:34)
[2020-05-22] MEDS: NICOTINE 7MG/24HR PATCH TRANSDERM SCH (08:03)
[2020-05-22] MEDS: MAGNESIUM HYDROXIDE 2,400 MG/10 ML CUP PO PRN (08:03)
[2020-05-22] MEDS: ACETAMINOPHEN TAB 325 MG TAB PO PRN ×2 (15:14→21:40)
--- NOTE | 2020-05-22 16:35 | P.PN ---
Subjective Progress Note Date: 05/22/20 Principal diagnosis: Psychosis NOS Subjective: Patient says that she feels ready to go home she said the reason she stopped her medicine as it was making her too lethargic even the Geodon months and she was afraid she couldn't drive to work and she really needs to get to work and she is afraid she couldn't take proper care of her son. She said that she seems to be tolerating the Abilify and that she will then take it because he is not going to make her too sleepy she does have some restless leg ( I am slightly concerned that she might have some akathisia although does not seem to be severe) Objective: Patient has to change his subject a little bed she leans forward is somewhat intense but alert cooperative good eye contact gait and station normal logical no evidence of psychosis Vital signs not taken today Labs nothing new since the MedicationsY 10 MG Assessment patient is positive about antipsychotic she know she needs to take them and seems be more committed to doing so Plan: No changes Objective - Vital Signs Vital signs: Vital Signs Temp 98.9 F 05/19/20 06:24 Pulse 52 L 05/21/20 06:36 Resp 18 05/21/20 06:36 BP 112/58 05/21/20 06:36 Pulse Ox 98 05/20/20 07:01 Intake & Output 05/21/20 05/22/20 05/22/20 18:59 06:59 18:59 Weight 57 kg - Labs CBC & Chem 7: 05/19/20 07:32 05/19/20 07:32
[2020-05-22] MEDS: ARIPiprazole 5 MG TAB PO SCH ×2 (21:21→21:26)
[2020-05-22] MEDS: LORATADINE 10 MG TAB PO SCH (21:21)
[2020-05-22] MEDS: LORazepam 1 MG TAB PO PRN (22:36)
[2020-05-23] MEDS: NICOTINE 7MG/24HR PATCH TRANSDERM SCH (08:47)
[2020-05-23] MEDS ORDERED: ARIPiprazole 5 MG TAB PO SCH (09:00)
--- NOTE | 2020-05-23 10:13 | P.PN ---
Progress Note - Text Progress Note Date: 05/23/20 I did review medical records ,I discussed case in team meeting ,I did interview patient who came to office holding court papers I did review weekend notes from waiter/waitress economy class provider ,Zyprexa was discontinued and he started her on low dose of Abilify 5 mg Patient asked for PRN 1 mg Ativan last night due to anxiety Participating in groups Slept 6 hours after she took 1 mg Ativan TODAY VITALS:temp:98.7,P:78,R:14,BP:112/62 Interim history: Patient stated that she wants to go home as she is missing her son ,was tearful talking about fear of loosing her son ,stating that her mother lying on petition ,patient said "I was scarred that someone will break in ,it is not crazy ,it does happen a lot in my neigborhood",patient reports lot worries regarding loosing her job,she stated that her son father trying to find her to take her son , stated that she can not trust people "I am scared to be here ,I was approached by 2 male patients in inappropriate way ,one asked me to take shower with him ",I discussed with patient safety on unit and she has to address anything like this with nursing staffs to set limits on any inappropriate behavior,she verbalized understanding Mental status exam: She presented as young female in [facility] , trying to be cooperative ,was tearful at times ,speech is non spontaneous stated mood "Nervous",affect is constricted,,denies any hallucination or delusional thinking but seems paranoia and suspicious,,evasive and guarded,denies any suicidal or homicidal ,her insight to her mental illness is limited Clinical Problems: Psychosis NOS,rule out substance induced psychosis ,Methamphetamine use disorder Plan: Continue inpatient. Waiting for probate court , ,her deferral meeting today at 4 PM discussed with her need for psychotropic medication ,initially was reluctant to increase Abilify dose as she does believe that "nothing wrong with my thinking" ,reality oriented therapy was provided increase Abilify 7.5 mg ,encourage participation in groups,monitor symptoms on daily basis
[2020-05-23] MEDS: ACETAMINOPHEN TAB 325 MG TAB PO PRN ×2 (12:58→17:44)
[2020-05-23] MEDS: LORazepam 1 MG TAB PO PRN (17:44)
[2020-05-24] MEDS: ACETAMINOPHEN TAB 325 MG TAB PO PRN ×2 (05:50→12:44)
[2020-05-24] MEDS ORDERED: ARIPiprazole 5 MG TAB PO SCH (09:00)
[2020-05-24] MEDS: NICOTINE 7MG/24HR PATCH TRANSDERM SCH (09:23)
[2020-05-24] MEDS: ARIPiprazole 10 MG TAB PO SCH (09:23)
--- NOTE | 2020-05-24 09:41 | P.PN ---
Progress Note - Text Progress Note Date: 05/24/20 I did review medical records ,I discussed case in team meeting ,I did interview patient who came to the office Patient did sign deferral yesterday Had PRN Ativan 1 mg after she met with employee benefits attorney:17:44 Sleeping:was not able to sleep ,was up coloring Slept 3-4 hours interrupted sleep Minimal participation in milieu TODAY VITALS:temp:98.6,P:86,R:17,BP:126/74 Interim history: Patient stated that she wants to go home as she is missing her son ,was tearful talking about fear of loosing her son ,stating that her cousin is taking care of patient son because "I can not trust my mom or her boyfriend",stated that she was up last night as she wants to finish coloring her picture before discharge,discussed effect of Adderall on her mental status ,patient stated "I will let my cousin to get ride of my Adderall bottle ",patient stated that she was told to stop and INDUCTION HEAT TREATER stimulant during last ho spitalization but she did not follow their recommendation,stated that she will be compliant with our recommendation because "I do not want to loose my son ",CPS is involved Mental status exam: She presented as young female in street cloth , trying to be cooperative ,was tearful at times ,speech is non spontaneous stated mood "Nervous",affect is constricted,,denies any hallucination or delusional thinking , patient was vague at times denies any suicidal or homicidal ,her insight to her mental illness is improving Clinical Problems: Psychosis NOS,rule out substance induced psychosis ,Methamphetamine use disorder Plan: Continue inpatient. increase Abilify 10 mg ,add Trazodone PRN for sleep ,SW to contact patient cousin ,encourage participation in groups,monitor symptoms on daily basi
[2020-05-24] MEDS: LORATADINE 10 MG TAB PO SCH ×2 (16:01→20:24)
[2020-05-24] MEDS: MAGNESIUM HYDROXIDE 2,400 MG/10 ML CUP PO PRN (16:01)
[2020-05-24] MEDS: LORazepam 1 MG TAB PO PRN (18:37)
[2020-05-24] MEDS: traZODone HCL 50 MG TAB PO PRN (21:09)
[2020-05-25] MEDS: ACETAMINOPHEN TAB 325 MG TAB PO PRN ×3 (00:38→21:11)
[2020-05-25] MEDS: NICOTINE 7MG/24HR PATCH TRANSDERM SCH (08:00)
[2020-05-25] MEDS: ARIPiprazole 10 MG TAB PO SCH (08:01)
[2020-05-25 11:40] VITALS: BMI 22.2
[2020-05-25] MEDS: LORazepam 1 MG TAB PO PRN ×2 (12:03→21:27)
--- NOTE | 2020-05-25 12:31 | P.PN ---
Progress Note - Text Progress Note Date: 05/25/20 I did review medical records ,I discussed case in team meeting ,I did interview patient who came to the office Had PRN Ativan 1 mg PRN at 18:37 ,Trazodone at 2100 as she was not able to sleep Participating in groups but seems guarded Reviewed note from on 05/24(( NOTES:((T/C to pt's cousin to obtain collateral information. Cousin states "I came to visit on Saturday and thought she was doing great. I've been talking to her throughout the week and she said she knew people weren't coming in her house. Then she called me today at 10:45 upset. She was the same person we spoke to 3 weeks ago. She's paranoid and saying people are breaking into her house. I've been thinking about it and when she had her son 4 years ago she would say things. I babysat him since he was 6 weeks old and she would say 'be careful what you say around the diaper bag, his dad could have it bugged.' Aunt states she is able to dispose of pt's Adderall and that pt can stay w/ her upon dc. "She can, but I don't think she'll stay. She was with me when she left [place] from to Saturday. On Saturday she lied and didn't take her medications. She became irrational and was adamant she did not need to stay w/ me. She said, 'you can keep Winston, but I'm leaving.' I will do anything to help her. Interim history: Patient stated that she wants to go home as she is missing her son ,was tearful talking about fear of loosing her son then started talking about investigation going on from CPS ,then she got angry when I told her she is not ready to leave as she is still paranoia and stated "I want to leave now and be by myself"and she left office abruptly Mental status exam: She presented as young female in street cloth , trying to be cooperative ,was tearful at times then got irritable and angry,speech is non spontaneous stated mood "Nervous",affect is constricted,,denies any hallucination ,bizarre delusion and paranoia, patient was vague at times denies any suicidal or homicidal ,her insight to her mental illness are limited Clinical Problems: Psychosis NOS,rule out substance induced psychosis ,Methamphetamine use disorder Plan: Continue inpatient. increase Abilify 15 mg ,continue Trazodone PRN for sleep , ,encourage participation in groups,monitor symptoms on daily basis
[2020-05-25] MEDS: MAGNESIUM HYDROXIDE 2,400 MG/10 ML CUP PO PRN (16:53)
[2020-05-25] MEDS: LORATADINE 10 MG TAB PO SCH (21:10)
[2020-05-25] MEDS: traZODone HCL 50 MG TAB PO PRN (21:11)
[2020-05-26] MEDS ORDERED: ARIPiprazole 15 MG TAB PO SCH (09:00)
[2020-05-26] MEDS: NICOTINE 7MG/24HR PATCH TRANSDERM SCH (09:01)
[2020-05-26] MEDS: ACETAMINOPHEN TAB 325 MG TAB PO PRN ×2 (13:28→21:07)
[2020-05-26 13:43] VITALS: BP 120/79; PULSE 106; RESP 20
[2020-05-26] MEDS: LORazepam 1 MG TAB PO PRN (13:48)
[2020-05-26] MEDS ORDERED: IBUPROFEN 800 MG TAB PO PRN (14:05)
--- NOTE | 2020-05-26 14:21 | P.PN ---
Progress Note - Text Progress Note Date: 05/26/20 I did review medical records ,I discussed case in team meeting ,I did interview patient who was laying down in bed as c/o of muscle spasm in legs and throbbing pain on right side of chest ,also c/o of muscle spasm in neck VITALS: Temp:98.2 ,P:106,R:20,BP:120/79 Had PRN Ativan 1 mg PRN at 13;43 Participating in groups Interim history: patient denies any hallucination ,worries about going home and start school "I do not care about going back to work or not ,I hate my job"stated that she wants to pursue to get bachelor degree and to find another job,patient was somatic preoccupied ,tearful at times talking about her 3 years old son Mental status exam: She presented as young female in street cloth , trying to be cooperative ,was tearful at times ,denies any hallucinations ,denies any delusional thinking , denies any suicidal or homicidal ,her insight is improving Clinical Problems: Psychosis NOS,rule out substance induced psychosis ,Methamphetamine use disorder Plan: Continue inpatient. continue Abilify 15 mg ,continue Trazodone PRN for sleep ,,add Cogentin BID ,encourage participation in groups,monitor symptoms on daily basisP
--- NOTE | 2020-05-26 15:30 | P.PN ---
Progress Note - Text Progress Note Date: 05/26/20 I was called by the nurse to assess the patient was complaining of for possible ''knot'' behind her left knee. Patient was seen, evaluated, and examined by me. She is complaining of some pain behind her left knee there is located only in one point. She described what she feels has a knot as well. She denies any swelling otherwise. No limitation in range of motion. No difficulty walking. On exam, left knee appeared normal. There is no warmth or swelling noted. No abnormalities noted in the popliteal fossa. Patient was reassured. No intervention or testing needed this time.
[2020-05-26] MEDS: MAGNESIUM HYDROXIDE 2,400 MG/10 ML CUP PO PRN (17:34)
[2020-05-26 17:44] VITALS: TEMP 98.8
[2020-05-26] MEDS: LORATADINE 10 MG TAB PO SCH (21:04)
[2020-05-26] MEDS: BENZTROPINE MESYLATE 0.5 MG TAB PO SCH (21:05)
[2020-05-26] MEDS: traZODone HCL 50 MG TAB PO PRN (21:07)
[2020-05-27] MEDS: NICOTINE 7MG/24HR PATCH TRANSDERM SCH (09:39)
[2020-05-27] MEDS: BENZTROPINE MESYLATE 0.5 MG TAB PO SCH (09:39)
--- NOTE | 2020-05-27 15:15 | DS ---
DISCHARGE SUMMARY ADMITTING DATE: 05/18/2020. DISCHARGE DATE: 05/27/2020. MANAGER SURGERY: Dr. John Collado for H and P and medical management. HISTORY OF PRESENT ILLNESS: The patient is 30, single female, who was brought to the emergency room with pickup order with a petition filed by her mother. According to the petition, she stated that the patient has been very paranoid and delusional, thinking there is camera in the wall across the street. She does believe that someone is breaking into her apartment, even she called the signing teacher's department two nights in a row and they came and they did check and they told her there is nothing. The patient stated that she does believe that her son's father is trying to find her to take her son from her. Also, she is thinking that people are spying on her and listening to her conversation and she gets very paranoid to the point that she did have to move to new apartment 4 weeks ago. Initially, patient was very resistant to stay here. She did believe that her thinking is not delusional, its reality and she kept telling me. For complete history and physical, please refer to my history and physical examination. HOSPITAL COURSE: The patient was very resistant initially to start any medication and I did fill physician certificate and we continued the patient on p.r.n. Ativan and Geodon. Then she met with her deputy prosecuting attorney and she did sign deferral treatment and she did agree to start Abilify. Will start her on 5 mg and will titrate this to 15 mg. The patient seemed concerned about her son's father, especially she stated that Child Protective Services has been called after this hospitalization and she is worried that they will take her 3-year-old son from her. She did admit that she has been using prescription for Adderall "to be able to study and go to work and be a mother." I did explain to her in detail that Adderall is increasing her paranoia, suspicious feeling and exacerbate her psychotic episode. The patient was attending group therapy, but she always was complaining of chronic neck pain and we did give her Motrin 800 three times a day as needed. I have a lengthy discussion with her about the effect of amphetamine on her mental status. Especially, she has been admitted at least twice in response, the first week of April for 4 days at [facility] and was discharged on Geodon, but she stopped taking the medication, saying that it did make her tired, so I did discuss with her compliance with the medication and to avoid using Adderall. The patient did verbalize understanding and she stated that she will give her prescription bottle to her cousin. MENTAL STATUS EXAMINATION: At the time of the discharge, the patient was wearing hospital gown, cooperative, very pleasant. Stated mood anxious, but affect is constricted. Her speech is spontaneous, coherent. She denied any auditory or visual hallucination. She denied any suicidal or homicidal ideation. There is some underlying, some fixed delusional or fear that someone will take her son, but she stated that she knows if there is investigation from protective services and she will go with the investigation. Her insight and judgment are improving. DISCHARGE DIAGNOSIS: 1. Psychosis, NOS. 2. Amphetamine-induced psychosis. 3. Rule out delusional disorder. 4. Poor compliance with medication. DISCHARGE MEDICATION AND PLAN: 1. The patient was referred to [facility] for followup. 2. Patient was instructed to avoid any ENVIRONMENTAL GEOLOGIST stimulant. 3. The patient was given one month supply of Abilify 15 mg daily. Cogentin 0.5 twice a day, trazodone 50 mg as needed for sleep. Motrin 800 three times a day as needed for her chronic neck pain. MMODL / IJN: [id number] /
[2020-05-27] MEDS ORDERED: ARIPiprazole 15 MG TAB PO SCH (19:00)
== END 2020-05-27 10:52 | disposition home or self-care (01) | DRG 897 ==
LOC: EC 19:59 → 3MHU 22:30
PROVIDERS: ADMIT Psychiatry & Neurology Psychiatry; ATTEND Psychiatry & Neurology Psychiatry
DX: F15.159 Other stimulant abuse with stimulant-induced psychotic disorder, unspecified (principal); Z71.6 Tobacco abuse counseling; F17.210 Nicotine dependence, cigarettes, uncomplicated; F20.9 Schizophrenia, unspecified; F31.9 Bipolar disorder, unspecified; F41.9 Anxiety disorder, unspecified; G89.29 Other chronic pain; J45.20 Mild intermittent asthma, uncomplicated; M54.2 Cervicalgia; M54.9 Dorsalgia, unspecified; Z79.899 Other long term (current) drug therapy; Z81.8 Family history of other mental and behavioral disorders; Z82.49 Family history of ischemic heart disease and other diseases of the circulatory system; Z87.442 Personal history of urinary calculi; Z91.14 Patient's other noncompliance with medication regimen; Z98.891 History of uterine scar from previous surgery; F22 Delusional disorders; Z79.3 Long term (current) use of hormonal contraceptives
CPT/HCPCS: 80053; 80061; 80306; 81001; 82075; 83036; 84443; 85025; 99284

== ENCOUNTER → 2020-11-25 | Outpatient (CLI) | payer OTHER ==
--- NOTE | 2020-11-26 12:20 | US ---
EXAMINATION TYPE: US pelvic complete DATE OF EXAM: 11/25/2020 COMPARISON: NONE CLINICAL HISTORY: R10.2 pelvic pain. Pelvic pain and pressure; on Depo Provera shot since 2016 withou t menstrual cycles; TECHNIQUE: TA US. Transabdominal sonographic images of the pelvis were acquired. Date of LMP: no period since 2016 EXAM MEASUREMENTS: Uterus: 6.8 x 3.3 x 2.3 cm Endometrial Stripe: 0.4 cm Right Ovary: 2.8 x 1.8 x 2.1 cm Left Ovary: 2.0 x 2.0 x 1.6 cm 1. Uterus: Anteverted wnl 2. Endometrium: wnl 3. Right Ovary: small follicles seen 4. Left Ovary: small follicles seen Color flow is associated with bilateral ovary. 5. Bilateral Adnexa: wnl 6. Posterior cul-de-sac: wnl IMPRESSION: Slightly suboptimal as patient refused transvaginal pelvic ultrasound investigation. Some what small size ovaries noted otherwise unremarkable study.
== END | disposition home or self-care (01) ==
LOC: RADUSWWP 16:20
PROVIDERS: ATTEND Obstetrics & Gynecology
DX: R10.2 Pelvic and perineal pain (principal)
CPT/HCPCS: 76856

== ENCOUNTER → 2021-02-20 | Outpatient (CLI) | payer OTHER | END | disposition home or self-care (01) | LOC: LABWHC1 13:00 | PROVIDERS: ATTEND Obstetrics & Gynecology | DX: N91.2 Amenorrhea, unspecified (principal) | CPT/HCPCS: 36415; 84702 ==

== ENCOUNTER → 2021-08-29 | Outpatient (CLI) | payer OTHER | END | disposition home or self-care (01) | LOC: LABWHC1 09:42 | PROVIDERS: ATTEND Obstetrics & Gynecology | DX: N92.6 Irregular menstruation, unspecified (principal) | CPT/HCPCS: 36415; 84702 ==

== ENCOUNTER 2021-12-08 16:13 | Emergency (ER) | payer OTHER ==
[2021-12-08 16:46] VITALS: TEMP 98
[2021-12-08] MEDS ORDERED: SODIUM CHLORIDE 0.9% 1,000 ML IV ONE (18:05)
[2021-12-08 18:26] LABS: Appearance,Urine Cloudy (Clear); Bacteria,Urine Rare /hpf; Bilirubin,Urine Negative (Negative); Blood,Urine Negative (Negative); Color,Urine Yellow; Glucose,Urine (UA) Negative (Negative); Hyaline Casts,Urine 1 /lpf (0-2); Ketones,Urine Negative (Negative); Leukocyte Esterase,Urine Moderate (Negative); Mucus,Urine Moderate /hpf; Nitrite,Urine Negative (Negative); Protein,Urine Negative (Negative); RBC,Urine 5 /hpf (0-5); Specific Gravity,Urine 1.018 (1.001-1.035); Squamous Epithelial Cell,Urine 21 /hpf (0-4); Urobilinogen,Urine <2.0 mg/dL (<2.0); WBC,Urine 10 /hpf (0-5)
[2021-12-08 18:31] LABS: Basophils % (A) 0 %; Eosinophils # (A) 0.1 k/uL (0-0.7); Eosinophils % (A) 1 %; HCT 42.1 % (34.0-46.0); HGB 13.8 gm/dL (11.4-16.0); Lymphocytes # (A) 3.7 k/uL (1.0-4.8); Lymphocytes % (A) 38 %; MCH 29.8 pg (25.0-35.0); MCHC 32.8 g/dL (31.0-37.0); MCV 90.8 fL (80.0-100.0); Mean Platelet Volume 8.1; Monocytes # (A) 0.7 k/uL (0-1.0); Monocytes % (A) 7 %; Neutrophils # (A) 5.1 k/uL (1.3-7.7); Neutrophils % (A) 52 %; Platelet Count 235 k/uL (150-450); RBC 4.64 m/uL (3.80-5.40); RDW 13.8 % (11.5-15.5); WBC 9.7 k/uL (3.8-10.6)
[2021-12-08 18:34] LABS: ALT 15 U/L (4-34); African American GFR (CKD) >90 (>60 ml/min/1.73 sqM); Anion Gap 12 mmol/L; Blood Urea Nitrogen 9 mg/dL (7-17); Calcium 9.2 mg/dL (8.4-10.2); Carbon Dioxide 21 mmol/L (22-30); Chloride 106 mmol/L (98-107); Glucose 68 mg/dL (74-99); Non-African American GFR(CKD) >90 (>60 ml/min/1.73 sqM); Potassium 4.1 mmol/L (3.5-5.1); Sodium 139 mmol/L (137-145); Total Bilirubin 0.7 mg/dL (0.2-1.3)
[2021-12-08 18:35] LABS: AST 32 U/L (14-36); Albumin 4.8 g/dL (3.5-5.0); Alkaline Phosphatase 35 U/L (38-126); Magnesium 2.1 mg/dL (1.6-2.3); Total Protein 7.9 g/dL (6.3-8.2)
[2021-12-08 18:39] VITALS: BP 112/78; PULSE 81; RESP 18
--- NOTE | 2021-12-08 19:04 | ED ---
General Adult HPI - General Chief complaint: Recheck/Abnormal Lab/Rx Stated complaint: poss carbon monoxide exposure Time Seen by Provider: 12/08/21 17:52 Source: patient, RN notes reviewed, old records reviewed Mode of arrival: ambulatory Limitations: no limitations - History of Present Illness Initial comments: 31-year-old female presenting for evaluation of nausea, and bilateral hand tingling. Patient believes that she may have carbon monoxide poisoning. She states she has been using a propane torch at work. Patient states the symptoms have been ongoing for the past several months. It did seem somewhat worse today. She had no chest pain. No dyspnea. No focal weakness. The tingling to the hands was bilateral. She is a current smoker but states she does not smoke that much. - Related Data Home Medications Medication Instructions Recorded Confirmed Loratadine [Claritin] 10 mg PO DAILY 04/28/19 05/19/20 Albuterol Inhaler [Ventolin Hfa 2 puff INHALATION RT-Q6H PRN 05/18/20 05/19/20 Inhaler] Fluticasone Nasal [place] [Flonase 1 spr EA NOSTRIL BID 05/18/20 05/19/20 Nasal [place]] Medroxyprogesterone Acetate 150 mg IM Q84D 05/18/20 05/19/20 [Depo-Provera] Previous Rx's Medication Instructions Recorded ARIPiprazole [Abilify] 15 mg PO 1900 30 Days tab 05/27/20 Benztropine Mesylate [Cogentin] 0.5 mg PO BID 30 Days tab 05/27/20 Ibuprofen [Motrin] 800 mg PO TID PRN #21 tab 05/27/20 traZODone HCL [Desyrel] 50 mg PO HS PRN 30 Days tab 05/27/20 Allergies Allergy/AdvReac Type Severity Reaction Status Date / Time No Known Allergies Allergy Verified 12/08/21 16:42 Review of Systems ROS Statement: Those systems with pertinent positive or pertinent negative responses have been documented in the HPI. ROS Other: All systems not noted in ROS Statement are negative. Past Medical History Past Medical History: No Reported History Additional Past Medical History / Comment(s): cyst on labia, kidney stones, chronic neck pain History of Any Multi-Drug Resistant Organisms: None Reported Past Surgical History: Section Additional Past Surgical History / Comment(s): cyst removal from labia Past Anesthesia/Blood Transfusion Reactions: No Reported Reaction Past Psychological History: Anxiety, Bipolar, Depression Smoking Status: Current every day smoker Past Alcohol Use History: None Reported Past Drug Use History: None Reported, Marijuana - Past Family History Father History Unknown: Yes Family Medical History: Hypertension Additional Family Medical History / Comment(s): paternal grandmother General Exam Limitations: no limitations General appearance: alert, in no apparent distress Head exam: Present: atraumatic, normocephalic Eye exam: Present: normal appearance, PERRL ENT exam: Present: mucous membranes dry Neck exam: Present: normal inspection. Absent: tenderness, meningismus Respiratory exam: Present: normal lung sounds bilaterally. Absent: respiratory distress, wheezes Cardiovascular Exam: Present: regular rate, normal rhythm GI/Abdominal exam: Present: soft. Absent: distended, tenderness, guarding Extremities exam: Present: normal inspection, normal capillary refill. Absent: calf tenderness Neurological exam: Present: alert, oriented X3, CN II-XII intact. Absent: motor sensory deficit Psychiatric exam: Present: normal affect, normal mood Skin exam: Present: warm, dry, intact. Absent: cyanosis, diaphoretic Course Vital Signs 12/08/21 12/08/21 16:42 18:37 Temperature 98.0 F Pulse Rate 84 81 Respiratory 20 18 Rate Blood Pressure 118/75 112/78 O2 Sat by Pulse 100 97 Oximetry Medical Decision Making - Medical Decision Making 31-year-old female with concern for carbon monoxide poisoning. She had bilateral hand tingling as well as nausea. The symptoms have been ongoing for 3 months after repetitive exposure to propane torch. Patient well-appearing with stable vitals. She has a nonfocal neurologic exam. She has a normal CBC, normal CMP with the exception of mild hypoglycemia. Her carbon monoxide level was 5 which is a normal range for a smoker. Urinalysis is contaminated with no symptoms of concerns of infection. No urinary symptoms. She is not . Patient reassured. She will follow-up with her primary care physician. - Lab Data Result diagrams: 12/08/21 18:08 12/08/21 18:08 Lab Results 12/08/21 12/08/21 12/08/21 Range/Units 18:08 18:08 18:08 WBC 9.7 (3.8-10.6) k/uL RBC 4.64 (3.80-5.40) m/uL Hgb 13.8 (11.4-16.0) gm/dL Hct 42.1 (34.0-46.0) % MCV 90.8 (80.0-100.0) fL MCH 29.8 (25.0-35.0) pg MCHC 32.8 (31.0-37.0) g/dL RDW 13.8 (11.5-15.5) % Plt Count 235 (150-450) k/uL MPV 8.1 Neutrophils % 52 % Lymphocytes % 38 % Monocytes % 7 % Eosinophils % 1 % Basophils % 0 % Neutrophils # 5.1 (1.3-7.7) k/uL Lymphocytes # 3.7 (1.0-4.8) k/uL Monocytes # 0.7 (0-1.0) k/uL Eosinophils # 0.1 (0-0.7) k/uL Basophils # 0.0 (0-0.2) k/uL Carbon Monoxide, Quant (<10.0) % Sodium (137-145) mmol/L Potassium (3.5-5.1) mmol/L Chloride (98-107) mmol/L Carbon Dioxide (22-30) mmol/L Anion Gap mmol/L BUN (7-17) mg/dL Creatinine (0.52-1.04) mg/dL Est GFR (CKD-EPI)AfAm (>60 ml/min/1.73 sqM) Est GFR (CKD-EPI)NonAf (>60 ml/min/1.73 sqM) Glucose (74-99) mg/dL Calcium (8.4-10.2) mg/dL Magnesium (1.6-2.3) mg/dL Total Bilirubin (0.2-1.3) mg/dL AST (14-36) U/L ALT (4-34) U/L Alkaline Phosphatase (38-126) U/L Total Protein (6.3-8.2) g/dL Albumin (3.5-5.0) g/dL Urine Color Yellow Urine Appearance Cloudy H (Clear) Urine pH 6.0 (5.0-8.0) Ur Specific [place] 1.018 (1.001-1.035) Urine Protein Negative (Negative) Urine Glucose (UA) Negative (Negative) Urine Ketones Negative (Negative) Urine Blood Negative (Negative) Urine Nitrite Negative (Negative) Urine Bilirubin Negative (Negative) Urine Urobilinogen <2.0 (<2.0) mg/dL Ur Leukocyte Esterase Moderate H (Negative) Urine RBC 5 (0-5) /hpf Urine WBC 10 H (0-5) /hpf Ur Squamous Epith Cells 21 H (0-4) /hpf Urine Bacteria Rare H (None) /hpf Hyaline Casts 1 (0-2) /lpf Urine Mucus Moderate H (None) /hpf Urine HCG, Qual Not Detected (Not Detectd) 12/08/21 12/08/21 Range/Units 18:08 18:08 WBC (3.8-10.6) k/uL RBC (3.80-5.40) m/uL Hgb (11.4-16.0) gm/dL Hct (34.0-46.0) % MCV (80.0-100.0) fL MCH (25.0-35.0) pg MCHC (31.0-37.0) g/dL RDW (11.5-15.5) % Plt Count (150-450) k/uL MPV Neutrophils % % Lymphocytes % % Monocytes % % Eosinophils % % Basophils % % Neutrophils # (1.3-7.7) k/uL Lymphocytes # (1.0-4.8) k/uL Monocytes # (0-1.0) k/uL Eosinophils # (0-0.7) k/uL Basophils # (0-0.2) k/uL Carbon Monoxide, Quant 5.0 (<10.0) % Sodium 139 (137-145) mmol/L Potassium 4.1 (3.5-5.1) mmol/L Chloride 106 (98-107) mmol/L Carbon Dioxide 21 L (22-30) mmol/L Anion Gap 12 mmol/L BUN 9 (7-17) mg/dL Creatinine 0.57 (0.52-1.04) mg/dL Est GFR (CKD-EPI)AfAm >90 (>60 ml/min/1.73 sqM) Est GFR (CKD-EPI)NonAf >90 (>60 ml/min/1.73 sqM) Glucose 68 L (74-99) mg/dL Calcium 9.2 (8.4-10.2) mg/dL Magnesium 2.1 (1.6-2.3) mg/dL Total Bilirubin 0.7 (0.2-1.3) mg/dL AST 32 (14-36) U/L ALT 15 (4-34) U/L Alkaline Phosphatase 35 L (38-126) U/L Total Protein 7.9 (6.3-8.2) g/dL Albumin 4.8 (3.5-5.0) g/dL Urine Color Urine Appearance (Clear) Urine pH (5.0-8.0) Ur Specific [place] (1.001-1.035) Urine Protein (Negative) Urine Glucose (UA) (Negative) Urine Ketones (Negative) Urine Blood (Negative) Urine Nitrite (Negative) Urine Bilirubin (Negative) Urine Urobilinogen (<2.0) mg/dL Ur Leukocyte Esterase (Negative) Urine RBC (0-5) /hpf Urine WBC (0-5) /hpf Ur Squamous Epith Cells (0-4) /hpf Urine Bacteria (None) /hpf Hyaline Casts (0-2) /lpf Urine Mucus (None) /hpf Urine HCG, Qual (Not Detectd) Disposition Clinical Impression: Dehydration, Paresthesia Disposition: HOME SELF-CARE Condition: Good Instructions (If sedation given, give patient instructions): Dehydration (ED), Paresthesia (ED) Is patient prescribed a controlled substance at d/c from ED?: No Referrals: Alyse Shah MD [Primary Care Provider] - 1-2 days Time of Disposition: 19:04
== END 2021-12-08 19:27 | disposition home or self-care (01) ==
LOC: EC 16:13
DX: E86.0 Dehydration (principal); R20.2 Paresthesia of skin; F31.9 Bipolar disorder, unspecified; F41.9 Anxiety disorder, unspecified; F17.200 Nicotine dependence, unspecified, uncomplicated; Z79.51 Long term (current) use of inhaled steroids; Z79.899 Other long term (current) drug therapy
CPT/HCPCS: 36415; 80053; 81001; 81025; 82375; 83735; 85025; 96360; 99284

== ENCOUNTER → 2022-03-05 | Outpatient (CLI) | payer OTHER | END | disposition home or self-care (01) | LOC: LABWHC1 09:13 | PROVIDERS: ATTEND Obstetrics & Gynecology | DX: N91.2 Amenorrhea, unspecified (principal) | CPT/HCPCS: 36415; 84702 ==

== ENCOUNTER 2022-03-19 09:32 | Emergency (ER) | payer OTHER ==
[2022-03-19 09:41] VITALS: RESP 18
[2022-03-19] MEDS ORDERED: KETOROLAC 15 MG/ML 1 ML VIAL IVP STA (10:39)
[2022-03-19] MEDS ORDERED: SODIUM CHLORIDE 0.9% 1,000 ML IV STA (10:39)
[2022-03-19] MEDS ORDERED: FAMOTIDINE 20 MG/2 ML VIAL IV STA (10:42)
[2022-03-19 11:10] LABS: Basophils # (A) 0.1 k/uL (0-0.2); Basophils % (A) 1 %; Eosinophils # (A) 0.1 k/uL (0-0.7); Eosinophils % (A) 3 %; HCT 41.2 % (34.0-46.0); HGB 13.7 gm/dL (11.4-16.0); Lymphocytes # (A) 1.6 k/uL (1.0-4.8); Lymphocytes % (A) 34 %; MCHC 33.4 g/dL (31.0-37.0); MCV 89.8 fL (80.0-100.0); Mean Platelet Volume 8.1; Monocytes # (A) 0.3 k/uL (0-1.0); Monocytes % (A) 7 %; Neutrophils # (A) 2.4 k/uL (1.3-7.7); Neutrophils % (A) 51 %; Platelet Count 199 k/uL (150-450); RBC 4.58 m/uL (3.80-5.40); WBC 4.6 k/uL (3.8-10.6)
[2022-03-19 11:28] LABS: Appearance,Urine Cloudy (Clear); Bacteria,Urine Rare /hpf; Bilirubin,Urine Negative (Negative); Blood,Urine Negative (Negative); Color,Urine Yellow; Glucose,Urine (UA) Negative (Negative); Ketones,Urine Negative (Negative); Leukocyte Esterase,Urine Small (Negative); Mucus,Urine Many /hpf; Nitrite,Urine Negative (Negative); Protein,Urine Trace (Negative); Squamous Epithelial Cell,Urine 5 /hpf (0-4); Urobilinogen,Urine <2.0 mg/dL (<2.0); WBC,Urine 3 /hpf (0-5)
[2022-03-19 11:47] LABS: Amphetamine Screen,Urine Not Detected (NotDetected); Barbiturate Screen,Urine Not Detected (NotDetected); Benzodiazepines Screen,Urine Not Detected (NotDetected); Cocaine Screen,Urine Not Detected (NotDetected); Methadone Screen, Urine Not Detected (NotDetected); Opiate Screen,Urine Not Detected (NotDetected); Oxycodone Screen, Urine Not Detected (NotDetected); Phencyclidine Screen,Urine Not Detected (NotDetected); Tricyclic Antidepressant,Urine Not Detected (NotDetected); Urn Cannabinoid Scrn Detected (NotDetected)
[2022-03-19] MEDS ORDERED: MAG HYDROX/AL HYDROX/SIMETH 30 ML, HYOSCYAMINE ELIXIR 10 ML, LIDOCAINE VISCOUS 2% 10 ML PO STA ×3 (12:01)
--- NOTE | 2022-03-19 12:08 | XR ---
KUB HISTORY: Abdomen pain Frontal KUB and 2 images correlated prior exam 12/24/2017 Metallic posts are present in the region of the nipples. Lung bases are clear. There are overlying ar tifacts. There is no evident bowel obstruction or pneumoperitoneum. Calcifications are superimposed o leonard the left kidney as on prior exam, one of which measures 5 mm, additional calcification is slightl y smaller 3 to 4 mm. Overlying bowel gas may obscure detail. Bones are unchanged. IMPRESSION: Left-sided nephrolithiasis.
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
[2022-03-19 13:03] LABS: ALT 18 U/L (4-34); AST 22 U/L (14-36); African American GFR (CKD) >90 (>60 ml/min/1.73 sqM); Albumin 3.6 g/dL (3.5-5.0); Alkaline Phosphatase 48 U/L (38-126); Amylase 39 U/L (30-110); Anion Gap 4 mmol/L; Blood Urea Nitrogen 8 mg/dL (7-17); Calcium 8.2 mg/dL (8.4-10.2); Carbon Dioxide 21 mmol/L (22-30); Chloride 113 mmol/L (98-107); Glucose 75 mg/dL (74-99); Lipase 57 U/L (23-300); Non-African American GFR(CKD) >90 (>60 ml/min/1.73 sqM); Potassium 3.9 mmol/L (3.5-5.1); Sodium 138 mmol/L (137-145); Total Bilirubin 0.1 mg/dL (0.2-1.3); Total Protein 5.8 g/dL (6.3-8.2)
[2022-03-19 13:27] VITALS: BP 128/76; PULSE 89; TEMP 98.3
== END 2022-03-19 13:26 | disposition home or self-care (01) ==
LOC: EC 09:32
DX: R19.7 Diarrhea, unspecified (principal); F17.200 Nicotine dependence, unspecified, uncomplicated
CPT/HCPCS: 36415; 80053; 82150; 83605; 83690; 85025; 81001; 81025; 80306; 74018; 99284; 96374; 96375; 96361; J1885

== ENCOUNTER → 2022-06-13 | Outpatient (CLI) | payer OTHER | END | disposition home or self-care (01) | LOC: LABWHC1 13:30 | PROVIDERS: ATTEND Obstetrics & Gynecology | DX: N94.89 Other specified conditions associated with female genital organs and menstrual cycle (principal) | CPT/HCPCS: 36415; 84702 ==

== ENCOUNTER 2022-06-16 14:34 | Inpatient (IN) | payer MEDICAID, OTHER ==
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
[2022-06-16 16:53] LABS: Appearance,Urine Cloudy (Clear); Bacteria,Urine Occasional /hpf; Bilirubin,Urine Negative (Negative); Blood,Urine Negative (Negative); Color,Urine Light Yellow; Glucose,Urine (UA) Negative (Negative); Ketones,Urine 1+ (Negative); Leukocyte Esterase,Urine Small (Negative); Mucus,Urine Occasional /hpf; Nitrite,Urine Negative (Negative); PH, Urine 6.5 (5.0-8.0); Protein,Urine Negative (Negative); RBC,Urine 2 /hpf (0-5); Specific Gravity,Urine 1.009 (1.001-1.035); Squamous Epithelial Cell,Urine 4 /hpf (0-4); Urobilinogen,Urine <2.0 mg/dL (<2.0); WBC,Urine 3 /hpf (0-5)
[2022-06-16 17:15] LABS: Amphetamine Screen,Urine Not Detected (NotDetected); Barbiturate Screen,Urine Not Detected (NotDetected); Benzodiazepines Screen,Urine Not Detected (NotDetected); Cocaine Screen,Urine Not Detected (NotDetected); Methadone Screen, Urine Not Detected (NotDetected); Opiate Screen,Urine Not Detected (NotDetected); Oxycodone Screen, Urine Not Detected (NotDetected); Phencyclidine Screen,Urine Not Detected (NotDetected); Tricyclic Antidepressant,Urine Not Detected (NotDetected); Urn Cannabinoid Scrn Not Detected (NotDetected)
[2022-06-16 19:10] LABS: HCT 36.8 % (34.0-46.0); HGB 12.4 gm/dL (11.4-16.0); MCH 29.9 pg (25.0-35.0); MCHC 33.8 g/dL (31.0-37.0); MCV 88.6 fL (80.0-100.0); Mean Platelet Volume 7.9; Platelet Count 204 k/uL (150-450); RBC 4.15 m/uL (3.80-5.40); RDW 13.2 % (11.5-15.5); WBC 6.5 k/uL (3.8-10.6)
[2022-06-16 19:52] LABS: ALT 16 U/L (4-34); AST 21 U/L (14-36); African American GFR (CKD) >90 (>60 ml/min/1.73 sqM); Albumin 4.5 g/dL (3.5-5.0); Alkaline Phosphatase 51 U/L (38-126); Anion Gap 14 mmol/L; Blood Urea Nitrogen 7 mg/dL (7-17); Calcium 9.4 mg/dL (8.4-10.2); Carbon Dioxide 20 mmol/L (22-30); Chloride 104 mmol/L (98-107); Glucose 93 mg/dL (74-99); Non-African American GFR(CKD) >90 (>60 ml/min/1.73 sqM); Potassium 3.8 mmol/L (3.5-5.1); Sodium 138 mmol/L (137-145); Total Bilirubin 0.5 mg/dL (0.2-1.3); Total Protein 6.9 g/dL (6.3-8.2)
[2022-06-16] MEDS ORDERED: MAG HYDROX/AL HYDROX/SIMETH 30 ML CUP PO PRN (20:53)
[2022-06-16] MEDS ORDERED: ACETAMINOPHEN TAB 325 MG TAB PO PRN (20:53)
[2022-06-16] MEDS ORDERED: HALOPERIDOL LACTATE 5 MG/ML 1 ML VIAL IM PRN (20:53)
[2022-06-16] MEDS ORDERED: MAGNESIUM HYDROXIDE 2,400 MG/10 ML CUP PO PRN (20:53)
[2022-06-16] MEDS ORDERED: LORazepam 2 MG/ML INJ IM PRN (20:56)
[2022-06-16] MEDS ORDERED: haloperidoL 5 MG TAB PO PRN (20:56)
[2022-06-16] MEDS: LORazepam 1 MG TAB PO PRN (21:57)
[2022-06-17] MEDS: NICOTINE 14MG/24HR PATCH TRANSDERM SCH (09:03)
[2022-06-17] MEDS: LORazepam 1 MG TAB PO PRN ×2 (09:05→20:10)
[2022-06-17 10:32] LABS: Chol/HDL Ratio 3.24 Ratio; LDL Cholesterol,Calculated 84.7 mg/dL (0.0-131.0); VLDL Calculation 14.82 mg/dL (5.00-40.00)
[2022-06-17] MEDS: BENZTROPINE MESYLATE 0.5 MG TAB PO SCH (11:52)
--- NOTE | 2022-06-17 14:20 | P.CONS ---
History of Present Illness - Reason for Consult Consult date: 06/17/22 - History of Present Illness This is a 32 year old female with history of anxiety/depression and bipolar, kidney stones. Also history of medicinal marijuana use for chronic back pain but states that she has quit using marijuana and daily tobacco use quit about 1 week ago. Patient reports to the emergency room with concern for thoughts about harming herself, she denies having a plan. States that people were saying she was hurting her son. She brought her son to a cousins house and came to the hospital for evaluation states she is feeling overwhelmed. Home medications include claritin, ibuprofen and also depo provera for control. Blood count is unremarkable, electrolytes are within normal limits. Urine is cloudy with occasional bacteria. Urine drug toxicology is negative. Covid is negative. She is afebrile, heart rate 100, blood pressure 131/76, 100% on room air. Patient is being cooperative with group and is in pleasant mood. She has no needs at this time. She is inquiring about receiving her depo shot. Will find out if this is something the pharmacy carries. REVIEW OF SYSTEMS: CONSTITUTIONAL: No fever, no malaise, no fatigue. HEENT: No recent visual problems or hearing problems. Denied any sore throat. CARDIOVASCULAR: No chest pain, orthopnea, PND, no palpitations, no syncope. PULMONARY: No shortness of breath, no cough, no hemoptysis. GASTROINTESTINAL: No diarrhea, no nausea, no vomiting, no abdominal pain. NEUROLOGICAL: No headaches, no weakness, no numbness. HEMATOLOGICAL: Denies any bleeding or petechiae. GENITOURINARY: Denies any burning micturition, frequency, or urgency. MUSCULOSKELETAL/RHEUMATOLOGICAL: Denies any joint pain, swelling, or any muscle pain. ENDOCRINE: Denies any polyuria or polydipsia. The rest of the 14-point review of systems is negative. PHYSICAL EXAMINATION: GENERAL: The patient is alert and oriented x3, not in any acute distress. Well developed, well nourished. HEENT: Pupils are round and equally reacting to light. EOMI. No scleral icterus. No conjunctival pallor. Normocephalic, atraumatic. No pharyngeal erythema. No thyromegaly. CARDIOVASCULAR: S1 and S2 present. No murmurs, rubs, or gallops. PULMONARY: Chest is clear to auscultation, no wheezing or crackles. ABDOMEN: Soft, nontender, nondistended, normoactive bowel sounds. No palpable organomegaly. MUSCULOSKELETAL: No joint swelling or deformity. EXTREMITIES: No cyanosis, clubbing, or pedal edema. NEUROLOGICAL: Gross neurological examination did not reveal any focal deficits. SKIN: No rashes. Assessment and plan Assessment Reports of suicidal ideations History of anxiety History of depression/bipolar disorder History of kidney stones Daily tobacco use History of THC use Family planning; uses depo-provera injection GI Prophylaxis DVT Prophylaxis Early ambulation Full Code Plan Resume appropriate home medications Nicotine patch Labs reviewed Pending pyschiatric evaluation Ok for depo-provera injection if pharmacy carries Thank you for this consultation The impression and plan of care has been dictated by Brisa Deleon Nurse Practitioner as directed. Dr. Leona MD I have performed a history and physical examination and medical decision making of this patient, discussed the same with the dictator, and agree with the dictators assessment and plan as written, documented as a scribe. Based on total visit time, I have performed more than 50% of this visit. Past Medical History Past Medical History: No Reported History Additional Past Medical History / Comment(s): cyst on labia, kidney stones, chronic neck pain History of Any Multi-Drug Resistant Organisms: None Reported Past Surgical History: Section Additional Past Surgical History / Comment(s): cyst removal from labia Past Anesthesia/Blood Transfusion Reactions: No Reported Reaction Past Psychological History: Anxiety, Bipolar, Depression Smoking Status: Current every day smoker Past Alcohol Use History: None Reported Additional Past Alcohol Use History / Comment(s): patient states she smoked 1/2 pack per day but quit 1 week ago Past Drug Use History: Marijuana - Past Family History Father History Unknown: Yes Family Medical History: Hypertension Additional Family Medical History / Comment(s): paternal grandmother Medications and Allergies Home Medications Medication Instructions Recorded Confirmed Type Loratadine [Claritin] 10 mg PO DAILY 04/28/19 06/16/22 History Medroxyprogesterone Acetate 150 mg IM Q84D 05/18/20 06/16/22 History [Depo-Provera] Ibuprofen [Motrin Ib] 800 mg PO DAILY 03/19/22 06/16/22 History Allergies Allergy/AdvReac Type Severity Reaction Status Date / Time sulfamethoxazole Allergy Rash/Hives Verified 06/16/22 14:39 [From Bactrim] trimethoprim [From Bactrim] Allergy Rash/Hives Verified 06/16/22 14:39 Physical Exam Vitals: Vital Signs Temp Pulse Pulse Resp BP BP Pulse Ox 06/16/22 22:31 97.0 F L 99 16 131/76 06/16/22 14:36 98 F 92 18 133/89 100 Intake and Output 06/16/22 06/17/22 06/17/22 22:59 06:59 14:59 Other: Weight 61 kg 60.5 kg Results CBC & Chem 7: 06/16/22 19:00 06/16/22 19:00 Labs: Abnormal Lab Results - Last 24 Hours (Table) 06/16/22 06/16/22 Range/Units 16:30 19:00 Carbon Dioxide 20 L (22-30) mmol/L Urine Appearance Cloudy H (Clear) Urine Ketones 1+ H (Negative) Ur Leukocyte Esterase Small H (Negative) Urine Bacteria Occasional H (None) /hpf Urine Mucus Occasional H (None) /hpf Assessment and Plan Time with Patient: Less than 30
[2022-06-17] MEDS ORDERED: medroxyPROGESTERone 150 MG/ML 1ML VIAL IM ONE (15:09)
--- NOTE | 2022-06-17 18:18 | P.HP ---
Psychiatric H&P - . H&P Date: 06/17/22 History & Physical: Allergies Allergy/AdvReac Type Severity Reaction Status Date / Time sulfamethoxazole Allergy Rash/Hives Verified 06/16/22 14:39 [From Bactrim] trimethoprim [From Bactrim] Allergy Rash/Hives Verified 06/16/22 14:39 Vital Signs Temp 97.0 F L 06/16/22 22:31 Pulse 99 06/16/22 22:31 Resp 16 06/16/22 22:31 BP 131/76 06/16/22 22:31 Pulse Ox 100 06/16/22 14:36 FiO2 Intake & Output 06/16/22 06/17/22 06/17/22 18:59 06:59 18:59 Weight 68.946 kg 61 kg 60.5 kg Laboratory Last Values WBC 6.5 k/uL (3.8-10.6) 06/16/22 19:00 RBC 4.15 m/uL (3.80-5.40) 06/16/22 19:00 Hgb 12.4 gm/dL (11.4-16.0) 06/16/22 19:00 Hct 36.8 % (34.0-46.0) 06/16/22 19:00 MCV 88.6 fL (80.0-100.0) 06/16/22 19:00 MCH 29.9 pg (25.0-35.0) 06/16/22 19:00 MCHC 33.8 g/dL (31.0-37.0) 06/16/22 19:00 RDW 13.2 % (11.5-15.5) 06/16/22 19:00 Plt Count 204 k/uL (150-450) 06/16/22 19:00 MPV 7.9 06/16/22 19:00 Sodium 138 mmol/L (137-145) 06/16/22 19:00 Potassium 3.8 mmol/L (3.5-5.1) 06/16/22 19:00 Chloride 104 mmol/L (98-107) 06/16/22 19:00 Carbon Dioxide 20 mmol/L (22-30) L 06/16/22 19:00 Anion Gap 14 mmol/L 06/16/22 19:00 BUN 7 mg/dL (7-17) 06/16/22 19:00 Creatinine 0.59 mg/dL (0.52-1.04) 06/16/22 19:00 Est GFR (CKD-EPI)AfAm >90 (>60 ml/min/1.73 sqM) 06/16/22 19:00 Est GFR (CKD-EPI)NonAf >90 (>60 ml/min/1.73 sqM) 06/16/22 19:00 Glucose 93 mg/dL (74-99) 06/16/22 19:00 Calcium 9.4 mg/dL (8.4-10.2) 06/16/22 19:00 Total Bilirubin 0.5 mg/dL (0.2-1.3) 06/16/22 19:00 AST 21 U/L (14-36) 06/16/22 19:00 ALT 16 U/L (4-34) 06/16/22 19:00 Alkaline Phosphatase 51 U/L (38-126) 06/16/22 19:00 Total Protein 6.9 g/dL (6.3-8.2) 06/16/22 19:00 Albumin 4.5 g/dL (3.5-5.0) 06/16/22 19:00 TSH 0.724 mIU/L (0.465-4.680) 06/16/22 19:00 Urine Color Light Yellow 06/16/22 16:30 Urine Appearance Cloudy (Clear) H 06/16/22 16:30 Urine pH 6.5 (5.0-8.0) 06/16/22 16:30 Ur Specific [place] 1.009 (1.001-1.035) 06/16/22 16:30 Urine Protein Negative (Negative) 06/16/22 16:30 Urine Glucose (UA) Negative (Negative) 06/16/22 16:30 Urine Ketones 1+ (Negative) H 06/16/22 16:30 Urine Blood Negative (Negative) 06/16/22 16:30 Urine Nitrite Negative (Negative) 06/16/22 16:30 Urine Bilirubin Negative (Negative) 06/16/22 16:30 Urine Urobilinogen <2.0 mg/dL (<2.0) 06/16/22 16:30 Ur Leukocyte Esterase Small (Negative) H 06/16/22 16:30 Urine RBC 2 /hpf (0-5) 06/16/22 16:30 Urine WBC 3 /hpf (0-5) 06/16/22 16:30 Ur Squamous Epith Cells 4 /hpf (0-4) 06/16/22 16:30 Urine Bacteria Occasional /hpf (None) H 06/16/22 16:30 Urine Mucus Occasional /hpf (None) H 06/16/22 16:30 Urine HCG, Qual Not Detected (Not Detectd) 06/16/22 16:30 Urine Opiates Screen Not Detected (NotDetected) 06/16/22 16:30 Ur Oxycodone Screen Not Detected (NotDetected) 06/16/22 16:30 Urine Methadone Screen Not Detected (NotDetected) 06/16/22 16:30 Ur Propoxyphene Screen Not Detected (NotDetected) 06/16/22 16:30 Ur Barbiturates Screen Not Detected (NotDetected) 06/16/22 16:30 U Tricyclic Antidepress Not Detected (NotDetected) 06/16/22 16:30 Ur Phencyclidine Scrn Not Detected (NotDetected) 06/16/22 16:30 Ur Amphetamines Screen Not Detected (NotDetected) 06/16/22 16:30 U Methamphetamines Scrn Not Detected (NotDetected) 06/16/22 16:30 U Benzodiazepines Scrn Not Detected (NotDetected) 06/16/22 16:30 Urine Cocaine Screen Not Detected (NotDetected) 06/16/22 16:30 U Marijuana (THC) Screen Not Detected (NotDetected) 06/16/22 16:30 Coronavirus (PCR) Not Detected (Not Detectd) 06/16/22 18:47 06/17/22 08:59 IDENTIFYING DATA: Patient is a single, unemployed, 32-year-old [place] female who is presenting with suicidal ideation and psychosis HPI: Patient reports that she has been hearing auditory hallucinations that are commentary nature over the past week. This was triggered when she heard someone say they might file a CPS case against her. She states that there was previously a CPS case against her in 2019 and she had similar auditory hallucinations at that time. She has been increasingly paranoid that people have been speaking that she has been abusing her child. She expresses that she cares very much for her child and therefore has been very hurt by these accusations. She has been feeling more depressed. Therefore, she brought herself into the hospital and gave her child to her cousin to care for in the meantime. She endorses low energy and anhedonia. She denies appetite issues or concentration issues. In an unrelated incident, she also reports that she quit her job during this time because she was accused of stealing an item. She states that she stopped taking her antipsychotic medications because she had been feeling well from [id number] while on the medication. She received Haldol last night and reports some stiffness of her neck but otherwise states it has been helping her in feeling better. She denies VH, paranoia, and ideas of reference. On risk assessment, patient denies suicidal and homicidal ideation as asked and assessed. She denies symptoms consistent with shiv. Prior from her concern about this CPS case, she denies being overtly anxious. PSYCH HX: Previous psychiatrist: [facility]- stopped seeing in Oct 2020 Therapist: Khadra at [facility] Past tx: Alex Maza Geodon - sedation but denies other side effects Hospitalizations: 2019 in [place] - AH and paranoia NSSI: Denies SA: Denies PMH: Denies chronic medical conditions ALLERGIES: Bactrim PCP: Dr. Anne Head injuries: When she was little, fell and had LOC for a few seconds Seizures: Deneis SUBSTANCE HX: Alcohol: Denies Tobacco: 0.5 ppd Cannabis: Once weekly. UDS positive for this Denies using other substances SOCIAL/LEGAL HX: She grew up with parents and 2 brothers. Lives in mobile with son who is 6 years old. No current romantic partners. Child's father has warrants for his arrest. She has a cousin with whom she is close. 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 [employer] in 2019 Legal problems: Denies FAM PSYCH HX: Brother- depression Suicide attempts: Denies DEVELOPMENT: Denies labor/delivery complications. Born via MENTAL STATUS EXAM: Patient is a 32-year-old female who appears her stated age. She is dressed in hospital scrubs. Grooming and hygiene are poor. Good eye contact. No abnormal movements (facial tics or tremors) are appreciated. Does not appear to be restless but has psychomotor retardation. Cooperative to interview. Speaks Slovenian. Speech is clear and coherent with regular rate and intonation. Mood is depressed. Affect is mood congruent yet constricted. Thought process is linear and goal-directed. Patient participates in conversation and answers questions appropriately. Thought content: denies suicidal and homicidal ideation today. Engaged in treatment planning today. Denies VH, but endorses AH and paranoia. A&Ox3. Attention and concentration intact to interview. No evidence that patient is responding to internal stimuli. Fund of knowledge is broad. Recent and remote memory are intact to interview. Judgment fair. Insight is fair. STRENGTHS/WEAKNESSES: Cares for son and wants to live for him INTELLECT: average IMPRESSIONS: Schizophrenia Adjustment disorder with depressed mood Cannabis use disorder PLAN: -Patient is admitted under voluntary status to [facility] for stabilization of psychiatric symptoms and safety. Patient signed adult voluntary form and medi cation consent and is placed in patient's chart. -Medications : Haldol 5 mg qHS and Cogentin 0.5 mg daily -Patient was counselled on substance abuse and desired to cut back on use. Motivational interviewing. -Patient was informed of the risks, benefits and side effects of the medication and patient verbally consented to taking the medications. Patient signed med consent form and was placed in chart. -Internal Medicine consult to perform medical evaluation and physical. -SW on board for discharge planning. Encourage patient to participate in groups to work on coping skills. 06/17/22 10:06 06/17/22 18:07
[2022-06-17] MEDS: haloperidoL 5 MG TAB PO SCH (20:09)
[2022-06-18] MEDS: NICOTINE 14MG/24HR PATCH TRANSDERM SCH (09:21)
[2022-06-18] MEDS: LORATADINE 10 MG TAB PO SCH (09:21)
[2022-06-18] MEDS: BENZTROPINE MESYLATE 0.5 MG TAB PO SCH (09:21)
--- NOTE | 2022-06-18 10:24 | P.PN ---
Progress Note - Text Progress Note Date: 06/18/22 Interval History: Patient was seen sitting in a group today and was directable and agreeable to speak with short story writer in the office. Patient appears to be fairly constricted and states that she misses her son. She was tearful at times during the interview. She was minimizing her depression today however denies any anxiety. She states that she has been taking her medication and not reporting any side effects. She states that she is going to some groups however is fairly vague about what she is learning. She states that she is agreeable to continue with medications including addition of Prozac. She states that she is sleeping fairly at nighttime. She claims that she is able to "think clearer" with the Haldol. She did speak briefly about why she came to the hospital. At this time patient denies any suicidal or homical ideations, intent or plan. Patient denies any auditory, visual hallucinations and denies any paranoia or delusions. Patient denies any side effects from the medications and has been compliant with meds. Mental Status Exam: General Appearance: Patient appears to be tearful at times, stated age is alert, directable, and cooperative. Behavior: Patient is calmly seated without any agitated behavior. Constricted. Tearful. Speech: Patient's speech is fluent and nonpressured. Monotone and concrete. Mood/Affect: Mood is depressed, improving mildly, affect is congruent and constricted. Suicidality/Homicidality: Patient denies having any suicidal or homicidal ideation intent or plan. Perceptions: Patient denies any visual hallucinations and denies any auditory hallucinations Though content/process: There is no evidence of any delusional thought content and thought process is linear and goal-directed. [place], poverty of content. Memory and concentration: AOX3, grossly intact for the purposes of this session Judgment and insight: Poor, Improving mildly Assessment Schizoaffective disorder Cannabis use disorder Nicotine dependence Plan: -Patient continues to meet criteria for inpatient psychiatric admission for symptom stabilization and safety. Patient has signed adult voluntary form and medication consent and was placed in patient's chart. -Medications: Continue with Haldol 5 mg daily at bedtime for psychosis, changed Cogentin to 0.5 mg by mouth daily at bedtime for EPS prophylaxis. Added Prozac 20 mg daily for mood/anxiety. -When necessary Ativan and Haldol for agitation/aggression. -NRT - nicotine patch -SW on board for discharge planning. Encouraged the patient to participate in milieu. Likely discharge back home and one to 2 days.
[2022-06-18] MEDS: FLUoxetine HCL 20 MG CAP PO SCH (10:27)
[2022-06-18] MEDS: LORazepam 1 MG TAB PO PRN ×2 (16:30→21:00)
[2022-06-18] MEDS: haloperidoL 5 MG TAB PO SCH (20:33)
[2022-06-18] MEDS ORDERED: BENZTROPINE MESYLATE 0.5 MG TAB PO SCH (21:00)
[2022-06-19] MEDS: NICOTINE 14MG/24HR PATCH TRANSDERM SCH (08:57)
[2022-06-19] MEDS: FLUoxetine HCL 20 MG CAP PO SCH (08:57)
[2022-06-19] MEDS: LORATADINE 10 MG TAB PO SCH (08:57)
[2022-06-19] MEDS ORDERED: traZODone HCL 50 MG TAB PO PRN (10:00)
--- NOTE | 2022-06-19 10:21 | P.PN ---
Progress Note - Text Progress Note Date: 06/19/22 Interval History: Patient was seen sitting in a group today and was directable and agreeable to speak with press writer in the office. Patient continues to be constricted in her affect. She continues to have these fairly superficial and her insight and was minimizing her symptoms yesterday. She believes that other patients on the unit were "stealing my shampoo" and gave a vague reason which was illogical as to why she believed this. She claims that she is not having any problems with her medications and was agreeable to have her Haldol increased. She did state that she was feeling anxious and restless last night and did take Haldol and Ativan as a when necessary. She was agreeable to continue ongoing with groups. She was fairly focused on discharge and superficially with press writer. At this time patient denies any suicidal or homical ideations, intent or plan. Patient denies any auditory, visual hallucinations and denies any paranoia or delusions. Patient denies any side effects from the medications and has been compliant with meds. Mental Status Exam: General Appearance: Patient appears to be tearful at times, stated age is alert, directable, and superficially cooperative. Behavior: Patient is calmly seated without any agitated behavior. Constricted. Speech: Patient's speech is fluent and nonpressured. Monotone and concrete. Mood/Affect: Mood is improving mildly, affect is congruent and constricted. Suicidality/Homicidality: Patient denies having any suicidal or homicidal ideation intent or plan. Perceptions: Patient denies any visual hallucinations and denies any auditory hallucinations Though content/process: There is no evidence of any delusional thought content and thought process is linear and goal-directed. [place], poverty of content. Memory and concentration: AOX3, grossly intact for the purposes of this session Judgment and insight: Poor, Improving mildly Assessment Schizoaffective disorder Cannabis use disorder Nicotine dependence Plan: -Patient continues to meet criteria for inpatient psychiatric admission for symptom stabilization and safety. Patient has signed adult voluntary form and medication consent and was placed in patient's chart. -Medications: Increased Haldol 3 mg bid for psychosis, changed Cogentin to 0.5 mg bid for EPS prophylaxis. Prozac 20 mg daily for mood/anxiety. I added melatonin 6 mg daily at bedtime for sleep. Trazodone daily at bedtime when necessary for sleep. -When necessary Ativan and Haldol for agitation/aggression. -NRT - nicotine patch -SW on board for discharge planning. Encouraged the patient to participate in milieu. Likely discharge back home and 1 to 2 days.
[2022-06-19] MEDS: BENZTROPINE MESYLATE 0.5 MG TAB PO SCH ×2 (11:51→20:44)
[2022-06-19] MEDS: haloperidoL 1 MG TAB PO SCH ×2 (11:51→20:44)
[2022-06-19] MEDS ORDERED: MELATONIN 3 MG TABLET PO SCH (21:00)
[2022-06-20] MEDS: BENZTROPINE MESYLATE 0.5 MG TAB PO SCH (09:00)
[2022-06-20] MEDS: LORATADINE 10 MG TAB PO SCH (09:00)
[2022-06-20] MEDS: haloperidoL 1 MG TAB PO SCH (09:00)
[2022-06-20] MEDS: FLUoxetine HCL 20 MG CAP PO SCH (09:00)
[2022-06-20] MEDS: NICOTINE 14MG/24HR PATCH TRANSDERM SCH (09:01)
--- NOTE | 2022-06-20 11:18 | P.DS ---
Providers Date of admission: 06/16/22 20:48 Expected date of discharge: 06/20/22 Attending physician: Christopher Gallegos MD Consults: 06/17/22 00:19 Consult Physician Routine Consulting Provider: Franklyn Kim Consult Reason/Comments: H&P for mental health admission Do you want consulting provider notified?: Yes, Notify in am Primary care physician: Thu Anne - Discharge Diagnosis(es) (1) Schizoaffective disorder Current Visit: Yes Status: Acute Priority: High (2) Cannabis use disorder Current Visit: Yes Status: Acute Priority: Medium (3) Nicotine dependence Current Visit: Yes Status: Acute Priority: Low Hospital Course: Admission HPI: Admission note was completed by Dr Mota "Patient is a single, unemployed, 32-year-old [place] female who is presenting with suicidal ideation and psychosis. Patient reports that she has been hearing auditory hallucinations that are commentary nature over the past week. This was triggered when she heard someone say they might file a CPS case against her. She states that there was previously a CPS case against her in 2019 and she had similar auditory hallucinations at that time. She has been increasingly paranoid that people have been speaking that she has been abusing her child. She expresses that she cares very much for her child and therefore has been very hurt by these accusations. She has been feeling more depressed. Therefore, she brought herself into the hospital and gave her child to her cousin to care for in the meantime. She endorses low energy and anhedonia. She denies appetite issues or concentration issues. In an unrelated incident, she also reports that she quit her job during this time because she was accused of stealing an item. She states that she stopped taking her antipsychotic medications because she had been feeling well from [id number] while on the medication. She received Haldol last night and reports some stiffness of her neck but otherwise states it has been helping her in feeling better. she denies VH, paranoia, and ideas of reference. On risk assessment, patient denies suicidal and homicidal ideation as asked and assessed. She denies symptoms consistent with shiv. Prior from her concern about this CPS case, she denies being overtly anxious." Hospital course: Upon admission to the unit patient was directable and agreeable to commence treatment and signed adult voluntary form. Patient got along well with other patients on the unit and followed unit protocol. Patient was compliant with the medications and denied any side effects throughout hospital course. Patient was started on Haldol and increased to a dose of 3 mg twice a day for psychosis/paranoia. Patient was also started on Cogentin 0.5 mg twice a day for EPS prophylaxis. Prozac 20 mg daily for mood/anxiety. Patient spoke of her stressors and engaged in therapy both group and individual. Patient was also seen by medical team for history and physical exam. Throughout the course of the hospitalization patient gradually improved with regards to psychosis, mood/anxiety, sleep and returned back to their baseline level of functioning. On the day of discharge patient denied any suicidal or homicidal ideations intent or plan denied any auditory or visual hallucinations. Patient endorsed wanting to live for her children and her future. The patient denied any access to guns or weapons. Patient denied any paranoia and did not endorse any delusions. Patient does have a significant history of substance abuse and was counseled on abstaining from all substances including alcohol and marijuana. Patient was also counseled on the medications and need for regular compliance and was encouraged to follow-up with their outpatient appointment for mental health and also for primary care. Prior to discharge a family meeting will be arranged by rn social services to answer any questions and ensure safety upon discharge. Patient will be discharged and staying with her cousin. Mental status exam: General Appearance: Patient appears to be short in stature, stated age is alert, pleasant, and cooperative. Patient is in no acute distress and has improved hygiene and grooming Behavior: Patient is calmly seated without any agitated behavior. timid Speech: Patient's speech is fluent and nonpressured. Mood/Affect: Patient reports their mood is "ok", affect is congruent and constricted Suicidality/Homicidality: Patient denies having any suicidal or homicidal ideation intent or plan. Perceptions: Patient denies any auditory or visual hallucinations. Though content/process: There is no evidence of any delusional thought content and thought process is linear and goal-directed. [place] Memory and concentration: AOX3, grossly intact for the purposes of this session. Can spell "WORLD" backwards correctly. Judgment and insight: chronically poor, however has improved with guarded prognosis Impression: Schizoaffective disorder Cannabis use disorder Nicotine dependence Plan: -Continue with discharge today as patient has improved and stabilized psychiatrically and is not currently an imminent threat to herself and/or others. Patient will remain at chronically elevated risk for harm to self and/or others due to her impulsivity. -Continue medications: Haloperidol by mouth 3 mg twice a day for psychosis, Cogentin 0.5 mg twice a day for EPS prophylaxis, Prozac 20 mg daily for mood/anxiety. -Patient was counseled on the need for medication compliance and appropriate follow-up at mental health and also primary care for medical issues. Patient verbalized understanding and agreed. -Social work to arrange for and conduct family meeting to ensure safety upon discharge and answer any questions/concerns. Social work also to arrange for patients follow up appointments with [facility] for psychiatric care along with follow up with primary care provider. -Patient counseled on abstaining from recreational drugs and marijuana and alcohol. Was informed/educated on the adverse effects on their physical and mental health. Patient verbally agreed and understood. -Patient was instructed to return to the hospital or seek immediate medical care if their psychiatric or medical symptoms do worsen or reoccur. Allergies Allergy/AdvReac Type Severity Reaction Status Date / Time sulfamethoxazole Allergy Rash/Hives Verified 06/16/22 14:39 [From Bactrim] trimethoprim [From Bactrim] Allergy Rash/Hives Verified 06/16/22 14:39 Laboratory Results WBC 6.5 k/uL (3.8-10.6) 06/16/22 19:00 RBC 4.15 m/uL (3.80-5.40) 06/16/22 19:00 Hgb 12.4 gm/dL (11.4-16.0) 06/16/22 19:00 Hct 36.8 % (34.0-46.0) 06/16/22 19:00 MCV 88.6 fL (80.0-100.0) 06/16/22 19:00 MCH 29.9 pg (25.0-35.0) 06/16/22 19:00 MCHC 33.8 g/dL (31.0-37.0) 06/16/22 19:00 RDW 13.2 % (11.5-15.5) 06/16/22 19:00 Plt Count 204 k/uL (150-450) 06/16/22 19:00 MPV 7.9 06/16/22 19:00 Sodium 138 mmol/L (137-145) 06/16/22 19:00 Potassium 3.8 mmol/L (3.5-5.1) 06/16/22 19:00 Chloride 104 mmol/L (98-107) 06/16/22 19:00 Carbon Dioxide 20 mmol/L (22-30) L 06/16/22 19:00 Anion Gap 14 mmol/L 06/16/22 19:00 BUN 7 mg/dL (7-17) 06/16/22 19:00 Creatinine 0.59 mg/dL (0.52-1.04) 06/16/22 19:00 Est GFR (CKD-EPI)AfAm >90 (>60 ml/min/1.73 sqM) 06/16/22 19:00 Est GFR (CKD-EPI)NonAf >90 (>60 ml/min/1.73 sqM) 06/16/22 19:00 Glucose 93 mg/dL (74-99) 06/16/22 19:[address] Glu mg/dL 107 06/16/22 19:00 Hemoglobin A1c 5.3 % (0.0-6.0) 06/16/22 19:00 Calcium 9.4 mg/dL (8.4-10.2) 06/16/22 19:00 Total Bilirubin 0.5 mg/dL (0.2-1.3) 06/16/22 19:00 AST 21 U/L (14-36) 06/16/22 19:00 ALT 16 U/L (4-34) 06/16/22 19:00 Alkaline Phosphatase 51 U/L (38-126) 06/16/22 19:00 Total Protein 6.9 g/dL (6.3-8.2) 06/16/22 19:00 Albumin 4.5 g/dL (3.5-5.0) 06/16/22 19:00 Triglycerides 74.10 mg/dL (0.00-149.00) 06/16/22 19:00 Cholesterol 144.00 mg/dL (0.00-200.00) 06/16/22 19:00 LDL Cholesterol, Calc 84.7 mg/dL (0.0-131.0) 06/16/22 19:00 VLDL Cholesterol, Calc 14.82 mg/dL (5.00-40.00) 06/16/22 19:00 HDL Cholesterol 44.50 mg/dL (40.00-60.00) 06/16/22 19:00 Cholesterol/HDL Ratio 3.24 Ratio 06/16/22 19:00 TSH 0.724 mIU/L (0.465-4.680) 06/16/22 19:00 Urine Color Light Yellow 06/16/22 16:30 Urine Appearance Cloudy (Clear) H 06/16/22 16:30 Urine pH 6.5 (5.0-8.0) 06/16/22 16:30 Ur Specific [place] 1.009 (1.001-1.035) 06/16/22 16:30 Urine Protein Negative (Negative) 06/16/22 16:30 Urine Glucose (UA) Negative (Negative) 06/16/22 16:30 Urine Ketones 1+ (Negative) H 06/16/22 16:30 Urine Blood Negative (Negative) 06/16/22 16:30 Urine Nitrite Negative (Negative) 06/16/22 16:30 Urine Bilirubin Negative (Negative) 06/16/22 16:30 Urine Urobilinogen <2.0 mg/dL (<2.0) 06/16/22 16:30 Ur Leukocyte Esterase Small (Negative) H 06/16/22 16:30 Urine RBC 2 /hpf (0-5) 06/16/22 16:30 Urine WBC 3 /hpf (0-5) 06/16/22 16:30 Ur Squamous Epith Cells 4 /hpf (0-4) 06/16/22 16:30 Urine Bacteria Occasional /hpf (None) H 06/16/22 16:30 Urine Mucus Occasional /hpf (None) H 06/16/22 16:30 Urine HCG, Qual Not Detected (Not Detectd) 06/16/22 16:30 Urine Opiates Screen Not Detected (NotDetected) 06/16/22 16:30 Ur Oxycodone Screen Not Detected (NotDetected) 06/16/22 16:30 Urine Methadone Screen Not Detected (NotDetected) 06/16/22 16:30 Ur Propoxyphene Screen Not Detected (NotDetected) 06/16/22 16:30 Ur Barbiturates Screen Not Detected (NotDetected) 06/16/22 16:30 U Tricyclic Antidepress Not Detected (NotDetected) 06/16/22 16:30 Ur Phencyclidine Scrn Not Detected (NotDetected) 06/16/22 16:30 Ur Amphetamines Screen Not Detected (NotDetected) 06/16/22 16:30 U Methamphetamines Scrn Not Detected (NotDetected) 06/16/22 16:30 U Benzodiazepines Scrn Not Detected (NotDetected) 06/16/22 16:30 Urine Cocaine Screen Not Detected (NotDetected) 06/16/22 16:30 U Marijuana (THC) Screen Not Detected (NotDetected) 06/16/22 16:30 Coronavirus (PCR) Not Detected (Not Detectd) 06/16/22 18:47 Vital Signs Temp 97.5 F L 06/19/22 06:00 Pulse 113 H 06/19/22 06:00 Resp 16 06/19/22 06:00 BP 92/51 06/19/22 06:00 Pulse Ox 99 06/18/22 06:28 FiO2 Patient Condition at Discharge: Stable Plan - Discharge Summary Discharge Rx Participant: No New Discharge Prescriptions: New Benztropine Mesylate [Cogentin] 0.5 mg PO BID 30 Days tab Nicotine 14Mg/24Hr Patch [Habitrol] 1 patch TRANSDERM DAILY 14 Days patch FLUoxetine HCL [PROzac] 20 mg PO DAILY 30 Days cap haloperidoL [Haldol] 3 mg PO BID 30 Days tab Melatonin 6 mg PO HS tab Continue Medroxyprogesterone Acetate [Depo-Provera] 150 mg IM Q84D Loratadine [Claritin] 10 mg PO DAILY 30 Days tab Discontinued Ibuprofen [Motrin Ib] 800 mg PO DAILY Discharge Medication List Medroxyprogesterone Acetate [Depo-Provera] 150 mg IM Q84D 05/18/20 [History] Benztropine Mesylate [Cogentin] 0.5 mg PO BID 30 Days tab 06/20/22 [Rx] FLUoxetine HCL [PROzac] 20 mg PO DAILY 30 Days cap 06/20/22 [Rx] Loratadine [Claritin] 10 mg PO DAILY 30 Days tab 06/20/22 [Rx] Melatonin 6 mg PO HS tab 06/20/22 [Rx] Nicotine 14Mg/24Hr Patch [Habitrol] 1 patch TRANSDERM DAILY 14 Days patch 06/20/22 [Rx] haloperidoL [Haldol] 3 mg PO BID 30 Days tab 06/20/22 [Rx] Follow up Appointment(s)/Referral(s): Thu Anne MD [Primary Care Provider] - 1-2 days Patient Instructions/Handouts: How to Stop Smoking (DC), Depression (DC), Schizophrenia (DC), Suicide Prevention (DC) Activity/Diet/Wound Care/Special Instructions: Avoid the use of street drugs and alcohol. Take all prescriptions as prescribed. When you are in need of refills on your medications, please contact your medical provider and/or outpatient psychiatrist to have this done. Please go to scheduled outpatient appointment for aftercare treatment. If symptoms return or become worse, call the crisis line at and/or go to the nearest emergency room for evaluation. Discharge Disposition: HOME SELF-CARE
[2022-06-20 12:18] VITALS: BP 117/80; PULSE 73; RESP 13; TEMP 97.8
== END 2022-06-20 17:11 | disposition home or self-care (01) | DRG 885 ==
LOC: EC 14:34 → 3MHU 20:48
PROVIDERS: ADMIT Psychiatry & Neurology Psychiatry; ATTEND Psychiatry & Neurology Psychiatry
DX: F25.9 Schizoaffective disorder, unspecified (principal); R45.851 Suicidal ideations; F31.9 Bipolar disorder, unspecified; Z20.822 Contact with and (suspected) exposure to COVID-19; F43.21 Adjustment disorder with depressed mood; F12.10 Cannabis abuse, uncomplicated; G89.29 Other chronic pain; M54.2 Cervicalgia; M54.9 Dorsalgia, unspecified; F17.210 Nicotine dependence, cigarettes, uncomplicated; Z71.6 Tobacco abuse counseling; Z79.1 Long term (current) use of non-steroidal anti-inflammatories (NSAID); Z79.3 Long term (current) use of hormonal contraceptives; Z79.899 Other long term (current) drug therapy; Z56.0 Unemployment, unspecified; Z62.810 Personal history of physical and sexual abuse in childhood; Z87.442 Personal history of urinary calculi; Z71.41 Alcohol abuse counseling and surveillance of alcoholic; Z71.51 Drug abuse counseling and surveillance of drug abuser; Z88.1 Allergy status to other antibiotic agents; Z88.2 Allergy status to sulfonamides
CPT/HCPCS: 36415; 80053; 80061; 80306; 81001; 81025; 82075; 83036; 84443; 85027; 87635; 99285

== ENCOUNTER 2024-02-06 12:52 | Inpatient (IN) | payer MEDICAID, OTHER ==
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
[2024-02-06 17:34] LABS: Appearance,Urine Cloudy (Clear); Bacteria,Urine Few /hpf; Bilirubin,Urine Negative (Negative); Blood,Urine Negative (Negative); Color,Urine Colorless; Glucose,Urine (UA) Negative (Negative); Ketones,Urine Negative (Negative); Leukocyte Esterase,Urine Large (Negative); Mucus,Urine Rare /hpf; Nitrite,Urine Negative (Negative); PH, Urine 7.5 (5.0-8.0); Protein,Urine Negative (Negative); RBC,Urine 3 /hpf (0-5); Specific Gravity,Urine 1.006 (1.001-1.035); Squamous Epithelial Cell,Urine 11 /hpf (0-4); Urobilinogen,Urine <2.0 mg/dL (<2.0); WBC,Urine 9 /hpf (0-5)
[2024-02-06 17:43] LABS: Amphetamine Screen,Urine Not Detected (NotDetected); Barbiturate Screen,Urine Not Detected (NotDetected); Benzodiazepines Screen,Urine Not Detected (NotDetected); Cocaine Screen,Urine Not Detected (NotDetected); Methadone Screen, Urine Not Detected (NotDetected); Opiate Screen,Urine Not Detected (NotDetected); Oxycodone Screen, Urine Not Detected (NotDetected); Phencyclidine Screen,Urine Not Detected (NotDetected); Tricyclic Antidepressant,Urine Not Detected (NotDetected); Urn Cannabinoid Scrn Not Detected (NotDetected)
[2024-02-06] MEDS ORDERED: HALOPERIDOL LACTATE 5 MG/ML 1 ML VIAL IM PRN (21:09)
[2024-02-06] MEDS ORDERED: haloperidoL 5 MG TAB PO PRN (21:09)
[2024-02-06] MEDS ORDERED: MAGNESIUM HYDROXIDE 2,400 MG/30 ML CUP PO PRN (21:09)
[2024-02-06] MEDS ORDERED: LORazepam 2 MG/ML INJ IM PRN (21:09)
[2024-02-06] MEDS ORDERED: ACETAMINOPHEN TAB 325 MG TAB PO PRN (21:09)
[2024-02-06] MEDS ORDERED: MAG HYDROX/AL HYDROX/SIMETH 355 ML BOTTLE PO PRN (21:09)
[2024-02-07] MEDS: NICOTINE 14MG/24HR PATCH TRANSDERM SCH (05:37)
[2024-02-07 12:17] LABS: Basophils # (A) 0.1 k/uL (0-0.2); Basophils % (A) 1 %; Eosinophils # (A) 0.1 k/uL (0-0.7); Eosinophils % (A) 1 %; HCT 43.3 % (34.0-46.0); HGB 13.6 gm/dL (11.4-16.0); Lymphocytes # (A) 2.4 k/uL (1.0-4.8); Lymphocytes % (A) 28 %; MCH 28.6 pg (25.0-35.0); MCHC 31.3 g/dL (31.0-37.0); MCV 91.3 fL (80.0-100.0); Mean Platelet Volume 9.2; Monocytes # (A) 0.6 k/uL (0-1.0); Monocytes % (A) 7 %; Neutrophils # (A) 5.2 k/uL (1.3-7.7); Neutrophils % (A) 61 %; Platelet Count 240 k/uL (150-450); RBC 4.74 m/uL (3.80-5.40); RDW 13.2 % (11.5-15.5); WBC 8.5 k/uL (3.8-10.6)
--- NOTE | 2024-02-07 12:31 | P.HP ---
Psychiatric H&P - . H&P Date: 02/07/24 History & Physical: Allergies Allergy/AdvReac Type Severity Reaction Status Date / Time sulfamethoxazole Allergy Rash/Hives Verified 02/06/24 15:58 [From Bactrim] trimethoprim [From Bactrim] Allergy Rash/Hives Verified 02/06/24 15:58 Vital Signs Temp 97.9 F 02/07/24 05:27 Pulse 96 02/07/24 05:27 Resp 18 02/06/24 22:14 BP 118/86 02/07/24 05:27 Pulse Ox 99 02/07/24 05:27 FiO2 Intake & Output 02/06/24 02/07/24 02/07/24 18:59 06:59 18:59 Weight 77.111 kg 71.781 kg Laboratory Last Values Urine Color Colorless 02/06/24 17:00 Urine Appearance Cloudy (Clear) H 02/06/24 17:00 Urine pH 7.5 (5.0-8.0) 02/06/24 17:00 Ur Specific [place] 1.006 (1.001-1.035) 02/06/24 17:00 Urine Protein Negative (Negative) 02/06/24 17:00 Urine Glucose (UA) Negative (Negative) 02/06/24 17:00 Urine Ketones Negative (Negative) 02/06/24 17:00 Urine Blood Negative (Negative) 02/06/24 17:00 Urine Nitrite Negative (Negative) 02/06/24 17:00 Urine Bilirubin Negative (Negative) 02/06/24 17:00 Urine Urobilinogen <2.0 mg/dL (<2.0) 02/06/24 17:00 Ur Leukocyte Esterase Large (Negative) H 02/06/24 17:00 Urine RBC 3 /hpf (0-5) 02/06/24 17:00 Urine WBC 9 /hpf (0-5) H 02/06/24 17:00 Ur Squamous Epith Cells 11 /hpf (0-4) H 02/06/24 17:00 Urine Bacteria Few /hpf (None) H 02/06/24 17:00 Urine Mucus Rare /hpf (None) H 02/06/24 17:00 Urine HCG, Qual Not Detected (Not Detectd) 02/06/24 17:00 Urine Opiates Screen Not Detected (NotDetected) 02/06/24 17:00 Ur Oxycodone Screen Not Detected (NotDetected) 02/06/24 17:00 Urine Methadone Screen Not Detected (NotDetected) 02/06/24 17:00 Ur Barbiturates Screen Not Detected (NotDetected) 02/06/24 17:00 U Tricyclic Antidepress Not Detected (NotDetected) 02/06/24 17:00 Ur Phencyclidine Scrn Not Detected (NotDetected) 02/06/24 17:00 Ur Amphetamines Screen Not Detected (NotDetected) 02/06/24 17:00 U Methamphetamines Scrn Not Detected (NotDetected) 02/06/24 17:00 U Benzodiazepines Scrn Not Detected (NotDetected) 02/06/24 17:00 Urine Cocaine Screen Not Detected (NotDetected) 02/06/24 17:00 U Marijuana (THC) Screen Not Detected (NotDetected) 02/06/24 17:00 Influenza Type A (PCR) Not Detected (Not Detectd) 02/06/24 18:20 Influenza Type B (PCR) Not Detected (Not Detectd) 02/06/24 18:20 RSV (PCR) Not Detected (Not Detectd) 02/06/24 18:20 SARS-CoV-2 (PCR) Not Detected (Not Detectd) 02/06/24 18:20 02/07/24 08:48 IDENTIFYING DATA: Patient is a 33-year-old female, has one son, lives in a [facility]. Single. Unemployed at the time. HPI: Patient presented to the hospital on 02/05. As per EPS note, "Pt was brought in by police and petitioned by U. Per petitioner, pt has been hearing demons a nd found burning personal items r/t demons telling her to. Per petition, pt's 7 year old son reported to his school that his mom is trying to teach him how to hear demons. Upon arrival to the ER pt was uncooperative and placed in restraints for safety. Once medically cleared and pt was more cooperative, assessment started. Pt found sitting in room with her head down. Pt presents as paranoid and suspicious and whispers "this isn't a very private room to talk." When asked for patient's point of view as to why she was here at the hospital she stated, "Because someone put a hallucinogen on my neck at work, and it helped me to realize I was psychic." Pt then states "I've always been psychic but didn't know what to make of it." Pt states a hallucinogen was also placed on her blanket. When asked if she had medical concerns she said "Just anxiety from trying to help people." Pt then asked communications writer to see what she was writing down. Senior Games Technician showed her the piece off paper where "anxiety" had been written. Pt then asked, what about my urine results." Senior Games Technician did not have results with her but told pt the UDS was negative. Pt replied, "Oh thats fake then because of my blanket." Pt denies SI/HI. Lacks insight and continues to be guarded and paranoid. " Today, the patient states she does not know why she is here, because she did not see the paperwork. She states that the police and [facility] came to her house to get her, because she told her son to "shut his mouth, so he can see the demons" She states she quit her job because a co worker rubbed hallucinogenics got rubbed on her neck. Patient seems quite guarded and paranoid. Patient lacks insight to her mental health and her need for medication. She states that someone put a gun in the bathroom at work for some reason. She states she "don't need much sleep or food". Patient denies any suicidal or homicidal ideations intent or plan. At this time patient endorses auditory or visual hallucinations. States she is a medium, and sees things, and hears peoples thoughts. Patient denies drugs, states she does smoke cigarettes. PAST PSYCHIATRIC HISTORY: Patient last admitted to this unit 05/2022 . Patient has not followed up with [facility] since her last discharge on this unit. Patient denies any history of suicide attempts in the past. PMH:As per ER note ALLERGIES: as per EMR CHEMICAL DEPENDENCY HISTORY: as per HPI FAMILY PSYCHIATRIC/SUBSTANCE USE HISTORY: her brother, but she does not know what he was diagnosed with. SOCIAL HISTORY: Patient was born and raised in [place]. Patient has her GED. Lives in a trailer with her son. Single. Unemployed. Denies legal problems.. Mental status exam: General Appearance: Patient appears to be short in stature, stated age is alert and attempts to be cooperative. Patient is in no acute distress and has fair hygiene and grooming. wearing her own clothes. Behavior: Patient is calmly seated without any agitated behavior. evasive, guarded Speech: Patient's speech is fluent and nonpressured. monotone Mood/Affect: Patient reports their mood is "ok", affect is congruent and constricted Suicidality/Homicidality: Patient denies having any suicidal or homicidal ideation intent or plan. Perceptions: Patient endorses auditory or visual hallucinations. states she is a medium. Though content/process: There is evidence of any delusional thought content ..seeing demons. [place] Memory and concentration: AOX3, grossly intact for the purposes of this session. Can spell "WORLD" backwards correctly. Judgment and insight: poor, and lacks insight. STRENGTHS/WEAKNESSES: strength is that patient is [resilient]. Weakness is that patient [has poor judgment and is impulsive] INTELLECT: [average] IMPRESSIONS: Schizophrenia Nicotine dependence non adherence to medication PLAN: -Patient is admitted under [involuntary] status to MHU for stabilization of psychiatric symptoms and safety. Patient has [not] signed [adult voluntary form or a medication consent] and is placed in patient's chart. [A second certification was completed and along with petition will be filed for court.] -Medications : Will start patient on Invega 3mg bid for psychosis, trazodone 50mg qhs for insomnia. -Ativan and Haldol PRN for agitation/aggression -Patient was informed of the risks, benefits and side effects of the medication. Patient states she does not want to take medications. -Internal Medicine consult to perform medical evaluation and physical. -NRT - nicotine patch -SW on board for discharge planning. Encourage patient to participate in groups to work on coping skills. Will await deferral and court date.
[2024-02-07 12:37] LABS: ALT 22 U/L (4-34); AST 25 U/L (14-36); African American GFR (CKD) >90 (>60 ml/min/1.73 sqM); Albumin 4.3 g/dL (3.5-5.0); Alkaline Phosphatase 55 U/L (38-126); Anion Gap 6 mmol/L; Bilirubin, Delta 0.2 mg/dL (0.0-0.2); Bilirubin,Unconjugated 0.2 mg/dL (0.0-1.1); Blood Urea Nitrogen 6 mg/dL (7-17); Calcium 9.8 mg/dL (8.4-10.2); Carbon Dioxide 26 mmol/L (22-30); Chloride 109 mmol/L (98-107); Glucose 86 mg/dL (74-99); Non-African American GFR(CKD) >90 (>60 ml/min/1.73 sqM); Sodium 141 mmol/L (137-145); Total Bilirubin 0.4 mg/dL (0.2-1.3); Total Protein 6.9 g/dL (6.3-8.2)
[2024-02-07 20:20] LABS: Chol/HDL Ratio 3.38 Ratio; LDL Cholesterol,Calculated 83.8 mg/dL (0.0-131.0); VLDL Calculation 18.34 mg/dL (5.00-40.00)
[2024-02-07] MEDS: PALIPERIDONE 3 MG TAB.ER.24 PO SCH (21:13)
--- NOTE | 2024-02-08 02:07 | P.CONS ---
History of Present Illness - Reason for Consult Consult date: 02/07/24 - History of Present Illness The patient is a 33-year-old female with a PMH of bipolar disorder, depression, and marijuana abuse who had presented to the emergency room after petition due to strange behavior along with hallucinations. The patient was admitted to the mental health unit where she was seen and evaluated accompanied by mental health unit RN. The patient reports that she was given hallucinogens by a friend. She reports having mild diffuse abdominal discomfort for the past several months, 2 out of 10 at maximal intensity with no alleviating or exacerbating features. She reports smoking a third of a pack of cigarettes daily. Denies illicit substance or alcohol use. Denied experiencing chest discomfort, shortness of breath, fever, chills, cough, nausea, vomiting, diarrhea. Review of systems: Pertinent positives and negatives as discussed in HPI, a complete review of systems was performed and all other systems are negative. Physical examination: General: non toxic, no distress, appears at stated age, overweight Derm: no unusual rashes/lesions, no unusual ecchymoses, warm, dry Head: atraumatic, normocephalic, symmetric Eyes: EOMI, no lid lag, anicteric sclera ENT: Nose and ears atraumatic, no thrush, no pharyngeal erythema Neck: trachea midline, supple Mouth: no lip lesion, mucus membranes moist Cardiovascular: S1S2 reg, no murmur, no edema Lungs: CTA bilateral, no rhonchi, no rales , no accessory muscle use Abdominal: soft, nontender to palpation, no guarding Ext: no gross muscle atrophy, no contractures, Neuro: No gross focal neuro deficits noted Psych: Alert, oriented, appropriate affect Assessment: Depression and suicidal ideation Imaging: None performed Data Review: Reviewed with WBC count 8.5, hemoglobin 13.6, sodium 141, potassium 4.0, chloride 109, BUN 6, creatinine 0.54, with an unremarkable urine toxicology with respiratory viral panel negative. Plan: Defer management of depression and suicidal ideation to the primary psychiatry service Thank you for allowing us to participate in the care of this patient. We will follow peripherally. Do not hesitate to contact us with questions. Someone can be reached from the [facility] hospitalist group at all hours of the day at [phone]. Past Medical History Past Medical History: No Reported History Additional Past Medical History / Comment(s): cyst on labia, kidney stones, chronic neck pain History of Any Multi-Drug Resistant Organisms: None Reported Past Surgical History: Section Additional Past Surgical History / Comment(s): cyst removal from labia Past Anesthesia/Blood Transfusion Reactions: No Reported Reaction Past Psychological History: Anxiety, Bipolar, Depression Smoking Status: Current every day smoker Past Alcohol Use History: None Reported Past Drug Use History: Marijuana - Past Family History Father History Unknown: Yes Family Medical History: Hypertension Additional Family Medical History / Comment(s): paternal grandmother Medications and Allergies Home Medications Medication Instructions Recorded Confirmed Type guanFACINE HCL [Intuniv] 4 mg PO DAILY 02/06/24 02/06/24 History hydrOXYzine pamoate [Vistaril] 50 mg PO TID PRN 02/06/24 02/06/24 History Allergies Allergy/AdvReac Type Severity Reaction Status Date / Time sulfamethoxazole Allergy Rash/Hives Verified 02/06/24 15:58 [From Bactrim] trimethoprim [From Bactrim] Allergy Rash/Hives Verified 02/06/24 15:58 Physical Exam Vitals: Vital Signs Temp Pulse BP Pulse Ox 02/07/24 05:27 97.9 F 96 118/86 99 Results CBC & Chem 7: 02/07/24 11:21 02/07/24 11:21 Labs: Abnormal Lab Results - Last 24 Hours (Table) 02/07/24 Range/Units 11:21 Chloride 109 H (98-107) mmol/L BUN 6 L (7-17) mg/dL
--- NOTE | 2024-02-08 09:53 | P.PN ---
Subjective Progress Note Date: 02/08/24 Principal diagnosis: IMPRESSIONS: Schizophrenia Nicotine dependence non adherence to medication Rule out schizotypal personality disorder Patient Name: Maeve Campo Date of : [birth year] Patient Status: Inpatient Attending Provider: Christopher Gallegos Date: 02/08/24 Initialization Date: 02/07/24 08:48 IDENTIFYING DATA: Patient is a 33-year-old female, has one son, lives in a trailer. Single. Unemployed at the time. Subjective data: subjective data: Patient reports that she is here because she sees spirits Patient seem to be very hesitant to interact and remains quite guarded Patient and seemed to shut down and continues to stare without giving any responses to the questions asked Affect remains blunted Patient also has the lights on in the room and states that she was afraid to sleep in the dark Reviewing the chart also reveals that the patient has been acutely delusional and psychotic Mental status exam: General Appearance: Patient appears to be short in stature, stated age is alert and attempts to be cooperative. Patient is in no acute distress and has fair hygiene and grooming. Behavior: Patient is laying in bed without any agitation remains. evasive, guarded Speech: Patient's speech is fluent and nonpressured. monotone Mood/Affect: Patient reports their mood is "ok", affect is congruent and constricted Suicidality/Homicidality: Patient denies having any suicidal or homicidal ideation intent or plan. Perceptions: Patient endorses auditory or visual hallucinations. states she is a medium. Though content/process: There is evidence of any delusional thought content .. Memory and concentration: AOX3, grossly intact for the purposes of this session. Can spell "WORLD" backwards correctly. Judgment and insight: poor, and lacks insight. STRENGTHS/WEAKNESSES: strength is that patient is [resilient]. Weakness is that patient [has poor judgment and is impulsive] INTELLECT: [average] IMPRESSIONS: Schizophrenia Nicotine dependence non adherence to medication PLAN: Agree with the current treatment plan: -Patient is admitted under [involuntary] status to MHU for stabilization of psychiatric symptoms and safety. Patient has [not] signed [adult voluntary form or a medication consent] and is placed in patient's chart. [A second certification was completed and along with petition will be filed for court.] -Medications : Continue patient on Invega 3mg bid for psychosis, trazodone 50mg qhs for insomnia. -Ativan and Haldol PRN for agitation/aggression I will check with the nursing staff regarding patient's frequency of taking the medications as she has refused them in the past and stated that she did not need them -Internal Medicine consult to perform medical evaluation and physical. -NRT - nicotine patch -SW on board for discharge planning. Encourage patient to participate in groups to work on coping skills. Will await deferral and court date. Objective - Vital Signs Vital signs: Vital Signs Temp 98.0 F 02/08/24 06:00 Pulse 109 H 02/08/24 06:00 Resp 16 02/08/24 06:00 BP 139/76 02/08/24 06:00 Pulse Ox 99 02/08/24 06:00 FiO2 - Labs CBC & Chem 7: 02/07/24 11:21 02/07/24 11:21 Labs: Abnormal Lab Results - Last 24 Hours (Table) 02/07/24 Range/Units 11:21 Chloride 109 H (98-107) mmol/L BUN 6 L (7-17) mg/dL
[2024-02-08] MEDS: LORazepam 1 MG TAB PO PRN (20:08)
--- NOTE | 2024-02-09 06:52 | P.PN ---
Subjective Progress Note Date: 02/09/24 Principal diagnosis: IMPRESSIONS: Schizophrenia Nicotine dependence non adherence to medication Rule out schizotypal personality disorder Patient Name: Maeve Campo Date of : [birth year] Patient Status: Inpatient Attending Provider: Christopher Gallegos Date: 02/09/24 Initialization Date: 02/07/24 08:48 IDENTIFYING DATA: Patient is a 33-year-old female, has one son, lives in a trailer. Single. Unemployed at the time. subjective data: the patient was seen chart was reviewed and case discussed with nursing staff Patient did not seem to be too interested in discussing any issues and mainly repeated herself about wanting to go home She says that the spirits are getting less intense but did not explain any further Affect remains blunted patient remains very withdrawn and limited in interaction Mental status exam:remains unchanged General Appearance: Patient appears to be short in stature, stated age is alert and attempts to be cooperative. Patient is in no acute distress and has fair hygiene and grooming. Behavior: Patient is laying in bed without any agitation remains. evasive, guarded Speech: Patient's speech is fluent and nonpressured. monotone Mood/Affect: Patient reports their mood is "ok", affect is congruent and constricted Suicidality/Homicidality: Patient denies having any suicidal or homicidal ideation intent or plan. Perceptions: Patient endorses auditory or visual hallucinations. states she is a medium. Though content/process: There is evidence of any delusional thought content .. Memory and concentration: AOX3, grossly intact for the purposes of this session. Can spell "WORLD" backwards correctly. Judgment and insight: poor, and lacks insight. STRENGTHS/WEAKNESSES: strength is that patient is [resilient]. Weakness is that patient [has poor judgment and is impulsive] INTELLECT: [average] IMPRESSIONS: Schizophrenia Nicotine dependence non adherence to medication PLAN: Agree with the current treatment plan:continue current treatment as planned -Patient is admitted under [involuntary] status to MHU for stabilization of psychiatric symptoms and safety. Patient has [not] signed [adult voluntary form or a medication consent] and is placed in patient's chart. [A second certification was completed and along with petition will be filed for court.] -Medications : Continue patient on Invega 3mg bid for psychosis, trazodone 50mg qhs for insomnia. -Ativan and Haldol PRN for agitation/aggression I will check with the nursing staff regarding patient's frequency of taking the medications as she has refused them in the past and stated that she did not need them -Internal Medicine consult to perform medical evaluation and physical. -NRT - nicotine patch -SW on board for discharge planning. Encourage patient to participate in groups to work on coping skills. Will await deferral and court date. Aureliano Meyer M.D. Objective - Vital Signs Vital signs: Vital Signs Temp 98.0 F 02/08/24 06:00 Pulse 109 H 02/08/24 06:00 Resp 16 02/08/24 06:00 BP 139/76 02/08/24 06:00 Pulse Ox 99 02/08/24 06:00 FiO2 - Labs CBC & Chem 7: 02/07/24 11:21 02/07/24 11:21
--- NOTE | 2024-02-10 11:21 | P.PN ---
Progress Note - Text Progress Note Date: 02/10/24 Interval History: Patient was seen in group and was directable and agreeable to speak with chief writer in the office. Patient states that the medications are giving her headaches, and they are not really helping her. Patient is attending groups. Tire Building Supervisor spoke with patient about different medications. Patient resistive to treatment. Patient lacks insight for her need for treatment. Patient states she is sleeping well at night, and she is eating all meals. patient was making jokes and often times was difficult to redirect and illogical in her thoughts. At this time patient denies any suicidal or homicidal ideations, intent or plan. Patient denies any auditory, visual hallucinations and denies any paranoia or delusions. Patient denies any side effects from the medications and has been compliant with meds. Mental status exam: General Appearance: Patient appears to be short in stature, stated age is alert and attempts to be cooperative. Patient is in no acute distress and has fair hygiene and grooming. wearing her own clothes. Behavior: Patient is calmly seated without any agitated behavior. evasive, guarded, bizzare Speech: Patient's speech is fluent and nonpressured. monotone Mood/Affect: Patient reports their mood is "ok", affect is congruent and constricted Suicidality/Homicidality: Patient denies having any suicidal or homicidal ideation intent or plan. Perceptions: Patient endorses auditory or visual hallucinations. states she is a medium. Though content/process: There is no evidence of any delusional thought content . [place], illogical and loose associations. Memory and concentration: AOX3, grossly intact for the purposes of this session. Judgment and insight: poor, and lacks insight. IMPRESSIONS: Schizophrenia Nicotine dependence non adherence to medication PLAN: -Patient is admitted under involuntary adult voluntary form or a medication consent not involuntary status to MHU for stabilization of psychiatric symptoms and safety. Patient has [not] signed [adult voluntary form or a medication consent] and is placed in patient's chart. deferral is 02/09, full hearing is 02/18 -Medications : d/c Invega due to intolerance, add Abilify 5mg daily for psychosis, with plan to transition onto M[facility]LAIN. trazodone 50mg qhs for insomnia. -Ativan and Haldol PRN for agitation/aggression -NRT - nicotine patch -SW on board for discharge planning. Encourage patient to participate in groups to work on coping skills. Deferral is today, full hearing is 02/18
[2024-02-10] MEDS: ARIPiprazole 5 MG TAB PO SCH (11:51)
--- NOTE | 2024-02-11 09:59 | P.PN ---
Progress Note - Text Progress Note Date: 02/11/24 Interval History: Patient was seen in group and was directable and agreeable to speak with press writer in the office. Patient states that the change in medication has helped with her headache. She states that she does feel a little bit shaky. Patient claims that her heart rate was elevated, however, she can control her heart rate. Patient states she is sleeping well at night, and she is eating all meals. Patient is focused on discharge, but she is still acting evasive and guarded. At this time patient denies any suicidal or homicidal ideations, intent or plan. Patient denies any auditory, visual hallucinations and denies any paranoia or delusions. Patient denies any side effects from the medications and has been compliant with meds. Mental status exam: General Appearance: Patient appears to be short in stature, stated age is alert and attempts to be cooperative. Patient is in no acute distress and has fair hygiene and grooming. wearing her own clothes. Behavior: Patient is calmly seated without any agitated behavior. evasive, guarded, improving mildly Speech: Patient's speech is fluent and nonpressured. monotone Mood/Affect: Patient reports their mood is "ok", affect is congruent and constricted Suicidality/Homicidality: Patient denies having any suicidal or homicidal ideation intent or plan. Perceptions: Patient endorses auditory or visual hallucinations. states she is a medium. Though content/process: There is no evidence of any delusional thought content . [place] Memory and concentration: AOX3, grossly intact for the purposes of this session. Judgment and insight: poor, and lacks insight. improving mildly IMPRESSIONS: Schizophrenia Nicotine dependence non adherence to medication PLAN: -Patient is admitted under involuntary adult voluntary form or a medication consent not involuntary status to MHU for stabilization of psychiatric symptoms and safety. Patient has [not] signed [adult voluntary form or a medication consent] and is placed in patient's chart. Patient deferred with her state's attorney on 02/09 -Medications :increase Abilify 7.5mg daily for psychosis, with plan to transition onto [facility]LA[facility]. trazodone 50mg qhs prn for insomnia. -Ativan and Haldol PRN for agitation/aggression -NRT - nicotine patch -SW on board for discharge planning. Encourage patient to participate in groups to work on coping skills. Patient deferred with her state's attorney 02/09. Transition onto M[facility]LAIN by -Saturday hopeful for d/c
[2024-02-11] MEDS: ARIPiprazole 5 MG TAB PO ONE (12:08)
[2024-02-12] MEDS: ARIPiprazole 5 MG TAB PO SCH (08:20)
--- NOTE | 2024-02-12 10:19 | P.PN ---
Progress Note - Text Progress Note Date: 02/12/24 Interval History: Patient was seen in group and was directable and agreeable to speak with senior medical writer in the office. Patient states that she is still having a mild headache, senior medical writer stated that she would rather rest and have it go away, than to take tylenol. Patient stated last night, she was endorsing some anxiety about a new admit last night, and took PRN ativan. Manager Customer spoke with patient about transitioning her onto a MCCLAIN prior to discharge, patient agreeable. Patient states she is sleeping well at night, and she is eating all meals. Patient is doing a bit better psychiatrically today, less evasive and guarded. At this time patient denies any suicidal or homicidal ideations, intent or plan. Patient denies any auditory, visual hallucinations and denies any paranoia or delusions. Patient denies any side effects from the medications and has been compliant with meds. Mental status exam: General Appearance: Patient appears to be short in stature, stated age is alert and attempts to be cooperative. Patient is in no acute distress and has fair hygiene and grooming. wearing her own clothes. Behavior: Patient is calmly seated without any agitated behavior. guarded, improving mildly Speech: Patient's speech is fluent and nonpressured. Mood/Affect: Patient reports their mood is "ok", affect is congruent and constricted mildly improving Suicidality/Homicidality: Patient denies having any suicidal or homicidal ideation intent or plan. Perceptions: Patient denies auditory or visual hallucinations. Though content/process: There is no evidence of any delusional thought content . Memory and concentration: AOX3, grossly intact for the purposes of this session. Judgment and insight: poor, improving mildly IMPRESSIONS: Schizophrenia Nicotine dependence non adherence to medication PLAN: -Patient is admitted under involuntary adult voluntary form or a medication consent not involuntary status to [facility]HU for stabilization of psychiatric symptoms and safety. Patient has [not] signed [adult voluntary form or a medication consent and is placed in patient's chart. Patient deferred with her contract attorney on 02/09 -Medications : Abilify 7.5 mg daily for psychosis, with plan to transition onto MCCLAIN, will schedule abilify maintenna 300 mg IM tomorrow, next dose will be due on 03/12. trazodone 50 mg qhs prn for insomnia. -Ativan and Haldol PRN for agitation/aggression -NRT - nicotine patch -SW on board for discharge planning. Encourage patient to participate in groups to work on coping skills. Patient deferred with her contract attorney 02/09. Transition onto MCCLAIN, will likely discharge saturday back home.
[2024-02-12] MEDS: IBUPROFEN 600 MG TAB PO PRN (11:49)
[2024-02-12] MEDS: traZODone HCL 50 MG TAB PO PRN (21:27)
[2024-02-13 07:28] VITALS: RESP 14
--- NOTE | 2024-02-13 09:48 | P.PN ---
Progress Note - Text Progress Note Date: 02/13/24 Interval History: Patient was seen in the [facility], and was directable and agreeable to speak with poem writer in the office. Patient states that she is doing ok today. No complaints of the headache any longer. Patient's insight is improving with medication. She is going to receive her MCCLAIN today, and likely discharge tomorrow. Patient states she is sleeping well at night, and she is eating all meals. Patient is doing a bit better psychiatrically today, less evasive and guarded. At this time patient denies any suicidal or homicidal ideations, intent or plan. Patient denies any auditory, visual hallucinations and denies any paranoia or delusions. Patient denies any side effects from the medications and has been compliant with meds. Mental status exam: General Appearance: Patient appears to be short in stature, stated age is alert and attempts to be cooperative. Patient is in no acute distress and has fair hygiene and grooming. wearing her own clothes. Behavior: Patient is calmly seated without any agitated behavior. improving Speech: Patient's speech is fluent and nonpressured. Mood/Affect: Patient reports their mood is "good", affect is congruent and constricted improving Suicidality/Homicidality: Patient denies having any suicidal or homicidal ideation intent or plan. Perceptions: Patient denies auditory or visual hallucinations. Though content/process: There is no evidence of any delusional thought content. Memory and concentration: AOX3, grossly intact for the purposes of this session. Judgment and insight: improving IMPRESSIONS: Schizophrenia Nicotine dependence non adherence to medication PLAN: -Patient is admitted under involuntary adult voluntary form or a medication consent not involuntary status to MHU for stabilization of psychiatric symptoms and safety. Patient has not signed [adult voluntary form or a medication consent and is placed in patient's chart. Patient deferred with her commonwealth attorney on 02/09 -Medications : Abilify 7.5 mg daily for psychosis, will give abilify maintenna 300 mg IM today, 02/12, next dose will be due on 03/12. trazodone 50 mg qhs prn for insomnia. -Ativan and Haldol PRN for agitation/aggression -NRT - nicotine patch -SW on board for discharge planning. Encourage patient to participate in groups to work on coping skills. Patient deferred with her commonwealth attorney 02/09. MCCLAIN given 02/12, next dose 03/12. Likely discharge tomorrow back home.
[2024-02-13] MEDS: ARIPiprazole IM 400 MG VIAL (NO COST) PHARMACY STOCK IM ONE (10:10)
[2024-02-14 07:37] VITALS: BP 104/64; PULSE 68; TEMP 98.3
--- NOTE | 2024-02-14 11:02 | P.DS ---
Providers Date of admission: 02/06/24 20:51 Expected date of discharge: 02/14/24 Attending physician: Christopher Gallegos MD Consults: 02/06/24 21:09 Consult Physician Routine Consulting Provider: Kathe Physician Consult Reason/Comments: Medical H&P Do you want consulting provider notified?: Yes Primary care physician: Stated None - Discharge Diagnosis(es) (1) Schizophrenia Current Visit: No Status: Acute Priority: High (2) Noncompliance with medication regimen Current Visit: Yes Status: Acute Priority: High (3) Nicotine dependence Current Visit: No Status: Acute Priority: Low Hospital Course: Admission HPI: Admission note was completed by repairer typewriter "Patient presented to the hospital on 02/05. As per EPS note, "Pt was brought in by police and petitioned by [facility]. Per petitioner, pt has been hearing demons and found burning personal items r/t demons telling her to. Per petition, pt's 7 year old son reported to his school that his mom is trying to teach him how to hear demons. Upon arrival to the ER pt was uncooperative and placed in restraints for safety. Once medically cleared and pt was more cooperative, assessment started. Pt found sitting in room with her head down. Pt presents as paranoid and suspicious and whispers "this isn't a very private room to talk." When asked for patient's point of view as to why she was here at the hospital she stated, "Because someone put a hallucinogen on my neck at work, and it helped me to realize I was psychic." Pt then states "I've always been psychic but didn't know what to make of it." Pt states a hallucinogen was also placed on her blanket. When asked if she had medical concerns she said "Just anxiety from trying to help people." Pt then asked repairer typewriter to see what she was writing down. Night Cleaner showed her the piece off paper where "anxiety" had been written. Pt then asked, what about my urine results." Night Cleaner did not have results with her but told pt the UDS was negative. Pt replied, "Oh thats fake then because of my blanket." Pt denies SI/HI. Lacks insight and continues to be guarded and paranoid. " Today, the patient states she does not know why she is here, because she did not see the paperwork. She states that the police and [facility] came to her house to get her, because she told her son to "shut his mouth, so he can see the demons" She states she quit her job because a co worker rubbed hallucinogenics got rubbed on her neck. Patient seems quite guarded and paranoid. Patient lacks insight to her mental health and her need for medication. She states that someone put a gun in the bathroom at work for some reason. She states she "don't need much sleep or food". Patient denies any suicidal or homicidal ideations intent or plan. At this time patient endorses auditory or visual hallucinations. States she is a medium, and sees things, and hears peoples thoughts. Patient denies drugs, states she does smoke cigarettes." Hospital course: Upon admission to the unit patient was admitted involuntarily on a petition and certificate and a second certificate was completed and faxed with the courts. Patient ended up signing a deferral with the hand shaker and agreeing to treatment. Patient was initially isolative and bizarre however at time of treatment she eventually got along well with other patients on the unit and followed unit protocol. Patient was compliant with the medications and denied any side effects throughout hospital course. Patient was started on Abilify p.o. 7.5 mg daily for psychosis/mood stabilization, patient was transitioned onto Abilify Maintenna 300 mg IM, given first dose on 02/12, next dose will be due at [facility] on 03/12, trazodone 50 mg nightly as needed for insomnia. Patient spoke of her stressors and engaged in therapy both group and individual. Patient was also seen by medical team for history and physical exam. Throughout the course of the hospitalization patient gradually improved with regards to mood, anxiety, psychosis/delusions, sleep and returned back to their baseline level of functioning. On the day of discharge patient denied any suicidal or homicidal i deations intent or plan denied any auditory or visual hallucinations. Patient endorsed wanting to live for her kids and her future. The patient denied any access to guns or weapons. Patient denied any paranoia and did not endorse any delusions. Patient does not have a significant history of substance abuse and was counseled on abstaining from all substances including alcohol and marijuana. Patient was also counseled on the medications and need for regular compliance and was encouraged to follow-up with their outpatient appointment for mental health and also for primary care. Prior to discharge a family meeting will be arranged by social professionals to answer any questions and ensure safety upon discharge. Mental status exam: General Appearance: Patient appears to be stated age is alert, pleasant, and cooperative. Patient is in no acute distress and has improved hygiene and grooming Behavior: Patient is calmly seated without any agitated behavior. Speech: Patient's speech is fluent and nonpressured. Mood/Affect: Patient reports their mood is "good", affect is congruent and euthymic. Suicidality/Homicidality: Patient denies having any suicidal or homicidal ideation intent or plan. Perceptions: Patient denies any auditory or visual hallucinations. Though content/process: There is no evidence of any delusional thought content and thought process is linear and goal-directed. Memory and concentration: AOX3, grossly intact for the purposes of this session. Can spell "WORLD" backwards correctly. Judgment and insight: Chronically poor, however has improved with guarded pro gnosis Impression: Schizophrenia Nicotine dependence non adherence to medication Plan: -Continue with discharge today as patient has improved and stabilized psychiatrically and is not currently an imminent threat to herself and/or others. Patient will remain at chronically elevated risk for harm to self and/or others due to her chronic mental illness. -Continue medications: Abilify p.o. 7.5 mg daily for psychosis/mood stabilization, will continue for 14 more days then discontinue as patient has transition onto Abilify maintainer was given 300 mg IM on 02/12, next dose will be due in 1 month on 03/12, trazodone 50 mg p.o. nightly for insomnia. -Patient was counseled on the need for medication compliance and appropriate follow-up at mental health and also primary care for medical issues. Patient verbalized understanding and agreed. -Social work to arrange for and conduct family meeting to ensure safety upon discharge and answer any questions/concerns. Social work also to arrange for p atients follow up appointments with [facility] for psychiatric care along with follow up with primary care provider. -Patient counseled on abstaining from recreational drugs and marijuana and alcohol. Was informed/educated on the adverse effects on their physical and mental health. Patient verbally agreed and understood. -Patient was instructed to return to the hospital or seek immediate medical care if their psychiatric or medical symptoms do worsen or reoccur. Allergies Allergy/AdvReac Type Severity Reaction Status Date / Time sulfamethoxazole Allergy Rash/Hives Verified 02/06/24 15:58 From Bactrim trimethoprim from Bactrim Allergy Rash/Hives Verified 02/06/24 15:58 Laboratory Results WBC 8.5 k/uL (3.8-10.6) 02/07/24 11:21 RBC 4.74 m/uL (3.80-5.40) 02/07/24 11:21 Hgb 13.6 gm/dL (11.4-16.0) 02/07/24 11:21 Hct 43.3 % (34.0-46.0) 02/07/24 11:21 MCV 91.3 fL (80.0-100.0) 02/07/24 11:21 MCH 28.6 pg (25.0-35.0) 02/07/24 11:21 MCHC 31.3 g/dL (31.0-37.0) 02/07/24 11:21 RDW 13.2 % (11.5-15.5) 02/07/24 11:21 Plt Count 240 k/uL (150-450) 02/07/24 11:21 MPV 9.2 02/07/24 11:21 Neutrophils % 61 % 02/07/24 11:21 Lymphocytes % 28 % 02/07/24 11:21 Monocytes % 7 % 02/07/24 11:21 Eosinophils % 1 % 02/07/24 11:21 Basophils % 1 % 02/07/24 11:21 Neutrophils # 5.2 k/uL (1.3-7.7) 02/07/24 11:21 Lymphocytes # 2.4 k/uL (1.0-4.8) 02/07/24 11:21 Monocytes # 0.6 k/uL (0-1.0) 02/07/24 11:21 Eosinophils # 0.1 k/uL (0-0.7) 02/07/24 11:21 Basophils # 0.1 k/uL (0-0.2) 02/07/24 11:21 Sodium 141 mmol/L (137-145) 02/07/24 11:21 Potassium 4.0 mmol/L (3.5-5.1) 02/07/24 11:21 Chloride 109 mmol/L (98-107) H 02/07/24 11:21 Carbon Dioxide 26 mmol/L (22-30) 02/07/24 11:21 Anion Gap 6 mmol/L 02/07/24 11:21 BUN 6 mg/dL (7-17) L 02/07/24 11:21 Creatinine 0.54 mg/dL (0.52-1.04) 02/07/24 11:21 Est GFR (CKD-EPI)AfAm >90 (>60 ml/min/1.73 sqM) 02/07/24 11:21 Est GFR (CKD-EPI)NonAf >90 (>60 ml/min/1.73 sqM) 02/07/24 11:21 Glucose 86 mg/dL (74-99) 02/07/24 11:[address] Glu mg/dL 111 mg/dL 02/07/24 11:21 Hemoglobin A1c 5.5 % (<=6.0) 02/07/24 11:21 Calcium 9.8 mg/dL (8.4-10.2) 02/07/24 11:21 Total Bilirubin 0.4 mg/dL (0.2-1.3) 02/07/24 11:21 Conjugated Bilirubin 0.0 mg/dL (0.0-0.3) 02/07/24 11:21 Unconjugated Bilirubin 0.2 mg/dL (0.0-1.1) 02/07/24 11:21 Delta Bilirubin 0.2 mg/dL (0.0-0.2) 02/07/24 11:21 AST 25 U/L (14-36) 02/07/24 11:21 ALT 22 U/L (4-34) 02/07/24 11:21 Alkaline Phosphatase 55 U/L (38-126) 02/07/24 11:21 Total Protein 6.9 g/dL (6.3-8.2) 02/07/24 11:21 Albumin 4.3 g/dL (3.5-5.0) 02/07/24 11:21 Triglycerides 91.70 mg/dL (0.00-149.00) 02/07/24 11:21 Cholesterol 145.00 mg/dL (0.00-200.00) 02/07/24 11:21 LDL Cholesterol, Calc 83.8 mg/dL (0.0-131.0) 02/07/24 11:21 VLDL Cholesterol, Calc 18.34 mg/dL (5.00-40.00) 02/07/24 11:21 HDL Cholesterol 42.90 mg/dL (40.00-60.00) 02/07/24 11:21 Cholesterol/HDL Ratio 3.38 Ratio 02/07/24 11:21 TSH 1.270 mIU/L (0.465-4.680) 02/07/24 11:21 Urine Color Colorless 02/06/24 17:00 Urine Appearance Cloudy (Clear) H 02/06/24 17:00 Urine pH 7.5 (5.0-8.0) 02/06/24 17:00 Ur Specific [place] 1.006 (1.001-1.035) 02/06/24 17:00 Urine Protein Negative (Negative) 02/06/24 17:00 Urine Glucose (UA) Negative (Negative) 02/06/24 17:00 Urine Ketones Negative (Negative) 02/06/24 17:00 Urine Blood Negative (Negative) 02/06/24 17:00 Urine Nitrite Negative (Negative) 02/06/24 17:00 Urine Bilirubin Negative (Negative) 02/06/24 17:00 Urine Urobilinogen <2.0 mg/dL (<2.0) 02/06/24 17:00 Ur Leukocyte Esterase Large (Negative) H 02/06/24 17:00 Urine RBC 3 /hpf (0-5) 02/06/24 17:00 Urine WBC 9 /hpf (0-5) H 02/06/24 17:00 Ur Squamous Epith Cells 11 /hpf (0-4) H 02/06/24 17:00 Urine Bacteria Few /hpf (None) H 02/06/24 17:00 Urine Mucus Rare /hpf (None) H 02/06/24 17:00 Urine HCG, Qual Not Detected (Not Detectd) 02/06/24 17:00 Urine Opiates Screen Not Detected (NotDetected) 02/06/24 17:00 Ur Oxycodone Screen Not Detected (NotDetected) 02/06/24 17:00 Urine Methadone Screen Not Detected (NotDetected) 02/06/24 17:00 Ur Barbiturates Screen Not Detected (NotDetected) 02/06/24 17:00 U Tricyclic Antidepress Not Detected (NotDetected) 02/06/24 17:00 Ur Phencyclidine Scrn Not Detected (NotDetected) 02/06/24 17:00 Ur Amphetamines Screen Not Detected (NotDetected) 02/06/24 17:00 U Methamphetamines Scrn Not Detected (NotDetected) 02/06/24 17:00 U Benzodiazepines Scrn Not Detected (NotDetected) 02/06/24 17:00 Urine Cocaine Screen Not Detected (NotDetected) 02/06/24 17:00 U Marijuana (THC) Screen Not Detected (NotDetected) 02/06/24 17:00 Influenza Type A (PCR) Not Detected (Not Detectd) 02/06/24 18:20 Influenza Type B (PCR) Not Detected (Not Detectd) 02/06/24 18:20 RSV (PCR) Not Detected (Not Detectd) 02/06/24 18:20 SARS-CoV-2 (PCR) Not Detected (Not Detectd) 02/06/24 18:20 Vital Signs Temp 98.3 F 02/14/24 06:20 Pulse 68 02/14/24 06:20 Resp 14 02/14/24 06:20 BP 104/64 02/14/24 06:20 Pulse Ox 100 02/11/24 07:28 FiO2 Patient Condition at Discharge: Stable Plan - Discharge Summary New Discharge Prescriptions: New ARIPiprazole [Abilify Maintena] 300 mg PO QMONTHLY #1 each traZODone HCL [Desyrel] 50 mg PO HS PRN 30 Days #30 tab PRN Reason: Insomnia Nicotine 14Mg/24Hr Patch [Habitrol] 1 patch TRANSDERM DAILY 14 Days #14 patch Ibuprofen [Motrin] 600 mg PO Q6HR PRN tab PRN Reason: Moderate Pain (Scale 4 To 6) ARIPiprazole [Abilify] 7.5 mg PO DAILY 14 Days #21 tab Discontinued hydrOXYzine pamoate [Vistaril] 50 mg PO TID PRN PRN Reason: Anxiety guanFACINE HCL [Intuniv] 4 mg PO DAILY Discharge Medication List ARIPiprazole [Abilify Maintena] 300 mg PO QMONTHLY #1 each 02/14/24 [Rx] ARIPiprazole [Abilify] 7.5 mg PO DAILY 14 Days #21 tab 02/14/24 [Rx] Ibuprofen [Motrin] 600 mg PO Q6HR PRN tab 02/14/24 [Rx] Nicotine 14Mg/24Hr Patch [Habitrol] 1 patch TRANSDERM DAILY 14 Days #14 patch 02/14/24 [Rx] traZODone HCL [Desyrel] 50 mg PO HS PRN 30 Days #30 tab 02/14/24 [Rx] Follow up Appointment(s)/Referral(s): [facility] [Outside] - 02/21/24 9:00 am (Intake w Naye on 02/21/24 @ 09:00 am @ [facility] Location) [facility] [NON-STAFF] - 1 Week Patient Instructions/Handouts: How to Stop Smoking (DC), Schizophrenia (DC), Psychotic Disorder (DC) Activity/Diet/Wound Care/Special Instructions: Avoid the use of street drugs and alcohol. Take all medications as prescribed. When you are in need of refills on your medications, please contact your medical provider and/or outpatient psychiatrist/provider to have this done. Please go to your scheduled outpatient appointment for aftercare treatment. If symptoms return or become worse, call the crisis line at and/or go to the nearest emergency room for evaluation. National Suicide Hotline 197 Discharge Disposition: HOME SELF-CARE
== END 2024-02-14 14:02 | disposition home or self-care (01) | DRG 750 ==
LOC: EC 12:52 → 3MHU 20:51 → UNDODISIN 02-12 14:30
PROVIDERS: ADMIT Psychiatry & Neurology Psychiatry; ATTEND Psychiatry & Neurology Psychiatry
DX: F20.9 Schizophrenia, unspecified (principal); Z91.148 Patient's other noncompliance with medication regimen for other reason; Z87.442 Personal history of urinary calculi; M54.2 Cervicalgia; G89.29 Other chronic pain; F32.A Depression, unspecified; F12.10 Cannabis abuse, uncomplicated; F41.9 Anxiety disorder, unspecified; G47.00 Insomnia, unspecified; F17.210 Nicotine dependence, cigarettes, uncomplicated; Z78.1 Physical restraint status; Z79.899 Other long term (current) drug therapy; Z88.2 Allergy status to sulfonamides; Z11.52 Encounter for screening for COVID-19
CPT/HCPCS: 80053; 80061; 80306; 81001; 81025; 82075; 82248; 83036; 84443; 85025; 87636; 99285